=== PATIENT | male | born 1980 | race Caucasian/White ===

== ENCOUNTER 2016-08-09 15:14 | Emergency (ER) | payer OTHER ==
[~2016-08-09] VITALS: Ht 193 cm; Wt 81.6 kg
[~2016-08-09 15:14] MED LIST: AMBIEN10 M1 PO; LITHIUM CARBON600 M1 PO; OLANZAPINE5 M2 PO; PROPRANOLOL HCL20 M1 PO; QUETIAPINE FUM100 M1 PO; QUETIAPINE FUMA50 M1 PO; SEROQUEL100 M1 PO; SEROQUEL50 M1 PO; XANAX0.5 M1 PO
--- NOTE | 2016-08-09 15:45 | ED GENERAL ADULT ---
See Addendum History of Present Illness General Chief Complaint: Psychiatric Related Complaint Stated Complaint: SVERE ANXIETY/REQUEST TO SPEAK SOMEONE Source: patient Exam Limitations: physical impairment Vital Signs & Intake/Output Vital Signs & Intake/Output Vital Signs Date Time Temp Pulse Resp B/P Pulse O2 O2 Flow FiO2 Ox Delivery Rate 08/09 1854 Room Air 08/09 1819 96.7 59 18 133/90 99 Room Air 08/09 1521 96.4 66 18 158/90 99 Room Air ED Intake and Output 08/10 0000 08/09 1200 Intake Total 120 Output Total Balance 120 Intake, Oral 120 Patient 180 lb Weight Allergies Coded Allergies: NO KNOWN ALLERGIES (06/10/16) Triage Note: 36 Y/O MALE C/O "SEVERE ANXIETY" FOR APPROX 1 WEEK - STATES HE WAS ABLE TO MANAGE ANXIETY PRIOR TO THE LAST WEEK WHEN "ITS JUST GOTTEN SO BAD". GOES TO IOP BUT DOES NOT FEEL ITS HELPING. HAS BEEN TAKING ALL PRESCRIBED MEDS INSTRUCTED WITH NO RELIEF. DENIES SI/HI. CALM AND COOPERATIVE. C/O NOT BEING ABLE TO SLEEP OR EAT. Triage Nurses Notes Reviewed? yes Onset: Abrupt Duration: hour(s): Timing: recent history HPI: 08/09/16 5 PM 36-year-old male presents to the emergency department complaining of anxiety and depression. The patient has a history of bipolar disorder. He says he's having severe anxiety and his medications are not working. He admits to smoking marijuana but denies other drug use. The onset of the symptoms were abrupt, the duration is really unknown, the severity is significant as his symptoms required him to come to the emergency department for care. (DEANDRA JACOBSON DO) Reconcile Medications [place] Carbonate 600 MG CAPSULE 1 CAP PO BID MENTAL HEALTH (Reported) Lorazepam (Ativan) 1 MG TABLET 1 TAB PO DAILY PRN AXIETY DO NOT DRIVE ON THIS MEDIOCATION Olanzapine 5 MG TABLET 1 TAB PO QPM MENTAL HEALTH (Reported) Propranolol HCl 20 MG TABLET 1 TAB PO TID UNKNOWN (Reported) Quetiapine Fumarate 100 MG TABLET 1 TAB PO QPM SLEEP (Reported) Quetiapine Fumarate 50 MG TABLET 1 TAB PO QPM SLEEP HELP (Reported) Quetiapine Fumarate (Seroquel) 100 MG TABLET 1 TAB PO QPM BIPOLAR Quetiapine Fumarate (Seroquel) 50 MG TABLET 1 TAB PO QPM BIPOLA (ENRIQUETA SANTANA,BEBETO Hawthorne) Past History Travel History Traveled to [place] past 21 day No Medical History Any Pertinent Medical History? 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 No (DEANDRA JACOBSON DO) Review of Systems Review of Systems Constitutional: Denies: fever. EENTM: Reports: no symptoms. Respiratory: Reports: no symptoms. Cardiovascular: Reports: no symptoms. GI: Reports: no symptoms. Genitourinary: Reports: no symptoms. Musculoskeletal: Reports: no symptoms. Skin: Reports: no symptoms. Neurological/Psychological: Reports: depressed. Hematologic/Endocrine: Denies: bleeding. Immunologic/Allergic: Reports: no symptoms. (DEANDRA JACOBSON DO) Physical Exam Physical Exam General Appearance: alert, awake, anxious, moderate distress Head: atraumatic, normal appearance Eyes: Bilateral: normal appearance, PERRL, EOMI. Ears, Nose, Throat: normal pharynx, normal ENT inspection Neck: normal inspection, supple Respiratory: normal breath sounds, chest non-tender, no respiratory distress Cardiovascular: regular rate/rhythm Peripheral Pulses: 4+ radial (R), 4+ radial (L) Gastrointestinal: soft, non-tender Back: decreased range of motion Extremities: normal inspection, normal range of motion Neurologic/Psych: awake, alert, oriented x 3 Skin: intact, normal color, warm/dry Core Measures ACS in differential dx? No CVA/TIA Diagnosis: No Severe Sepsis Present: No Septic Shock Present: No (DEANDRA JACOBSON DO) Progress Differential Diagnoses I considered the following diagnoses in my evaluation of the patient: [ exacerbation of bipolar disorder, niall, drug overdose, substance abuse, depression, suicidal ideation] Plan of Care: Orders Procedure Date/time Status Continuous Observation Monitor 08/09 1616 Active URINE DRUG SCREEN FOR ER ONLY 08/09 1616 Complete ETHANOL 08/09 1616 Complete COMPREHENSIVE METABOLIC PANEL 08/09 1616 Complete CBC WITHOUT DIFFERENTIAL 08/09 1616 Complete ED CRISIS PSYCH CONSULT 02/03 1617 Active Laboratory Tests 08/09/16 1710: Urine Opiates Screen < 100.00, Methadone Screen < 40, Barbiturate Screen < 60, Ur Phencyclidine Scrn < 6.00, Amphetamines Screen < 100, U Benzodiazepines Scrn < 85, Urine Cocaine Screen < 50, Urine Cannabis Screen > 80.00 H 08/09/16 1625: Anion Gap 8, Estimated GFR > 60, BUN/Creatinine Ratio 19.0, Glucose 80, Calcium 9.6, Total Bilirubin 1.1, AST 23, ALT 42, Alkaline Phosphatase 73, Total Protein 7.4, Albumin 4.5, Globulin 2.9, Albumin/Globulin Ratio 1.6, CBC w Diff NO MAN DIFF REQ, RBC 5.07, MCV 88.1, MCH 29.6, RDW 13.1, MPV 9.3, Gran % 59.1, Lymphocytes % 28.5, Monocytes % 8.9, Eosinophils % 3.2, Basophils % 0.3, Absolute Granulocytes 6.2, Absolute Lymphocytes 3.0, Absolute Monocytes 0.9 H, Absolute Eosinophils 0.3, Absolute Basophils 0, PUBS MCHC 33.6, Serum Alcohol < 10.0 Initial ED EKG: none (DEANDRA JACOBSON DO) Departure Departure Disposition: STILL A PATIENT Condition: Stable Clinical Impression Primary Impression: Bipolar disorder Referrals: PATIENT HAS NO PRIMARY CARE DR (PCP/Family) Departure Forms: Customer Survey General Discharge Information Comments 08/09/16 The patient is pending evaluation by crisis. He was placed in a quiet room. Ativan was given and a nicotine patch. The patient was signed out to Dr. Auguste at 7 PM (DEANDRA JACOBSON DO) Departure Prescriptions: Current Visit Scripts Lorazepam (Ativan) 1 TAB PO DAILY PRN AXIETY #[address] DO [address] DRIVE ON THIS MEDIOCATION PA/DIE TURNER Co-Sign Statement Statement: ED Attending supervision documentation- [] I saw and evaluated the patient. I have also reviewed all the pertinent lab results and diagnostic results. I agree with the findings and the plan of care as documented in the PA's/DIE TURNER's documentation. X] I have reviewed the ED Record and agree with the PA's/DIE TURNER's documentation. [] Additions or exceptions (if any) to the PAs/DIE TURNER's note and plan are summarized below: [] (ENRIQUETA SANTANA,BEBETO Hawthorne) Critical Care Note Critical Care Note Critical Care Time: 30-74 min (DEANDRA JACOBSON DO)
[2016-08-09 16:37] LABS: ABSOLUTE BASOPHIL COUNT 0 /CUMM (0.0-0.2); ABSOLUTE EOSINOPHIL COUNT 0.3 /CUMM (0.0-0.7); ABSOLUTE GRANULOCYTE CT 6.2 /CUMM (1.4-6.5); ABSOLUTE MONOCYTE COUNT 0.9 /CUMM (0.10-0.60); BASOPHIL % 0.3 % (0.0-2.0); EOSINOPHIL % 3.2 % (0-5); GRANULOCYTE % 59.1 % (42.2-75.2); HEMATOCRIT 44.6 % (42-52); MEAN CORPUSCULAR HGB 29.6 PG (27.0-31.0); MEAN CORPUSCULAR HGB CONC 33.6 G/DL (33.0-37.0); MEAN CORPUSCULAR VOLUME 88.1 FL (80.0-94.0); MEAN PLATELET VOLUME 9.3 FL (7.4-10.4); PLATELET COUNT 224 /CUMM (130-400); RBC DISTRIBUTION WIDTH 13.1 % (11.5-14.5); RED BLOOD CELL CT 5.07 /CUMM (4.70-6.10); WHITE BLOOD CELL COUNT 10.5 /CUMM (4.8-10.8)
[2016-08-09 18:19] VITALS: BP 133/90
--- NOTE | 2016-08-09 18:43 | ED PSYCH CRISIS CONSULTATION ---
Crisis Consult Basic Assessment Date of Consult: 08/09/16 Responsible Person/Accompanied By: Self. Insurance Authorization: Insurance #1: Insurance name: CAROL VERDIN Phone number: Policy number: [id number] Group number: Authorization number: ED Provider: Patient's ED Provider: DEANDRA JACOBSON DO Primary Care Physician: Patient's PCP: PATIENT HAS NO PRIMARY CARE DR PCP's Phone Number: Current Psychiatrist: Angeline Dawson MD Chief Complaint: Psychiatric Related Complaint Patient's Quote: "bad anxiety" Present Illness: Pt is a 36 year old male, currently in our IOP at [facility], he has been attending for 6 weeks, pt states the medications he is taking are not decreasing his feelings of worry, panic and anxiety. He states outside of program, he is home and pacing, biting his fingernails and worrying about everything, "my Father has a rash on his arm, and I am fearful he will ", pt is aggravated, oriented, and denies si/hi. He reports he smokes marijuana, and it seems to be the "only thing to help my anxiety". Pt was addicted for psychosis and "bipolar d/o" 5 months ago at [facility], otherwise he has not been inpatient. Pt reports " I came to to the ER to get a prescription, and if that isnt going to happen, just give me my clothes". I referred pt to , and consulted with Dr. Allred, pt is expected to inform IOP of any additions and/or changes to regime that happened during this visit. Pt lives with his Father, and would returnt [facility]. Patient's Address: [address] [place] [address] Other Phone Number: Who Do You Live With? Father Family/Informants Interviewed: left message for Father, and spoke with IOP staff for an update, pt has been doing better in regards to being attentive and less isolative, he is engaged in program. Allergies - Coded Allergies: NO KNOWN ALLERGIES (06/10/16) Current Medications - Scheduled Medications [place] Carbonate 600 MG CAPSULE 1 CAP PO BID MENTAL HEALTH #60 (Reported) Entered as Reported by FIDE COLEMAN on 03/27/16 1342 Olanzapine 5 MG TABLET 1 TAB PO QPM MENTAL HEALTH #14 (Reported) Entered as Reported by FIDE COLEMAN on 06/10/16 1357 Propranolol HCl 20 MG TABLET 1 TAB PO TID UNKNOWN #60 (Reported) Entered as Reported by FIDE COLEMAN on 03/27/16 1342 Quetiapine Fumarate 100 MG TABLET 1 TAB PO QPM SLEEP #30 (Reported) Entered as Reported by FIDE COLEMAN on 03/27/16 1343 Quetiapine Fumarate 50 MG TABLET 1 TAB PO QPM SLEEP HELP #30 (Reported) Entered as Reported by FIDE COLEMAN on 03/27/16 1343 Quetiapine Fumarate (Seroquel) 100 MG TABLET 1 TAB PO QPM BIPOLAR #30 TAB Prescribed by BRITNEY MARTINEZ MD on 05/31/16 Quetiapine Fumarate (Seroquel) 50 MG TABLET 1 TAB PO QPM BIPOLA #30 TAB Prescribed by BRITNEY MARTINEZ MD on 05/31/16 Scheduled PRN Medications Lorazepam (Ativan) 1 MG TABLET 1 TAB PO DAILY PRN AXIETY #4 TAB Prescribed by DEANDRA JACOBSON DO on 08/09/16 Laboratory Results: Laboratory Tests 08/09/16 1710: Urine Opiates Screen < 100.00, Methadone Screen < 40, Barbiturate Screen < 60, Ur Phencyclidine Scrn < 6.00, Amphetamines Screen < 100, U Benzodiazepines Scrn < 85, Urine Cocaine Screen < 50, Urine Cannabis Screen > 80.00 H 08/09/16 1625: Anion Gap 8, Estimated GFR > 60, BUN/Creatinine Ratio 19.0, Glucose 80, Calcium 9.6, Total Bilirubin 1.1, AST 23, ALT 42, Alkaline Phosphatase 73, Total Protein 7.4, Albumin 4.5, Globulin 2.9, Albumin/Globulin Ratio 1.6, CBC w Diff NO MAN DIFF REQ, RBC 5.07, MCV 88.1, MCH 29.6, RDW 13.1, MPV 9.3, Gran % 59.1, Lymphocytes % 28.5, Monocytes % 8.9, Eosinophils % 3.2, Basophils % 0.3, Absolute Granulocytes 6.2, Absolute Lymphocytes 3.0, Absolute Monocytes 0.9 H, Absolute Eosinophils 0.3, Absolute Basophils 0, PUBS MCHC 33.6, Serum Alcohol < 10.0 Past History Past Medical History Neurological: NONE EENT: NONE Cardiovascular: NONE Respiratory: NONE Gastrointestinal: NONE Hepatic: NONE Renal: NONE Musculoskeletal: NONE Psychiatric: anxiety, bipolar disease Endocrine: NONE Blood Disorders: NONE Cancer(s): 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 Pt has a supportive family. Pt is connected to treatment at present. Physical Limitations (Interventions): None identified. Psychiatric Treatment History Psych Treatment Psychiatric Treatment Yes Inpatient Treatment Yes Outpatient Treatment Yes Location of Treatment [facility] Reason for Treatment 5 months ago inpatient Currently and for past 6 weeks [facility] Previously and can return to [facility] in [place] Dates of Treatment For mood stabilization Response to Treatment he doesnt feel it has been helping with anxiety Diagnosis by History: Per pt's self-report, bipolar d/o, and cannabis use d/o Substance Use/Abuse History Drug Use/Abuse Substances Used/Abused Yes Substance Used/Abused Marijuana First Use 20 Last Used today How much used/taken 1/8 every 2 days How often daily throughout the day For how long on and off since first use Route of use smoke Substance Abuse Treatment Substance Abuse Treatment Past Substance Abuse [place] No Comments: denies Current Mental Status Mental Status Orientation: Person, Place, Situation Affect: Anxious, Sad (irritable) Speech: WNL Neuro-vegetative: Appetite Decreased, Concentration Poor, Energy Decreased, Sleep Disturbance Appearance Appearance- Dress/Hygiene: groomed, appropriate hospital attire Behaviors Thought Process: WNL Thought Content: WNL Memory: WNL Insight: Fair SI/HI Risk Assessment Past Suicidal Ideation/Attempts No Current Suicidal Ideation/Att No Past Homicidal Ideation/Att: No Current Homicidal Ideation/Attempts No Degree of Intent: None Risk Factors: high anxiety/distress, substance abuse, isolate/no social support, male Lethality Ratin (mild) PTSD Checklist PTSD Done? patient declined ED Management Sitter: Yes Restraints: No DSM5/PS Stressors/Medical Prob Diagnosis' (DSM 5, Stressors, Medical): F31.9 Unspecified Bipolar D/O F12.20 Cannabis Use D/O Current GAF: 37 Departure Disposition Psych Medical Clearance Date: 08/09/16 Medically Cleared at: 1730 Time Started: 1729 Time Ended: 1829 Psychiatrist Consulted: nicole Date Disposition Established: 08/09/16 Time Disposition Established: 183 Plan for Disposition - Modality: IOP Facility: [facility] Follow-up Appt Date: 08/13/16 Contact: [facility] Telephone: [phone] Rationale for Disposition: Consulted with Dr Allred, pt to follow up with IOP provider, if pt was given a new presciption, it is recommended to inform provider and to confirm it is allowed in their program i.e. benzo. Pt states he wasnt sure. Pt was medciated in the ER with 2mg of ativan. Pt discharged home. Additional Instructions: To follow up with IOP provider Referrals PATIENT HAS NO PRIMARY CARE DR (PCP/Family)
[2016-08-09] MEDS ORDERED: ATIVAN1 M1 PO (18:53)
== END 2016-08-09 19:09 ==
LOC: ERH 15:14
PROVIDERS: Emergency Medicine
DX: F31.9 Bipolar disorder, unspecified (principal)
CPT/HCPCS: 80307; G0463; G0480

== ENCOUNTER 2016-10-29 11:45 | Emergency (ER) | payer OTHER ==
[~2016-10-29] VITALS: Ht 193 cm; Wt 81.6 kg
[~2016-10-29 11:45] MED LIST changes: +ATIVAN1 M1 PO
[2016-10-29] MEDS ORDERED: HYDROXYZINE HCL50 M1 PO (12:29)
[2016-10-29] MEDS ORDERED: GABAPENTIN300 M2 PO (12:30)
[2016-10-29] MEDS ORDERED: TRAZODONE HCL50 M1 PO (12:30)
[2016-10-29] MEDS ORDERED: VRAYLAR3 MG PO (12:30)
--- NOTE | 2016-10-29 12:58 | ED PSYCHIATRIC COMPLAINT ---
History of Present Illness General Chief Complaint: Psychiatric Related Complaint Stated Complaint: NEEDS EVAL FOR DEPRESSION HX OF SAME Source: patient, MOTHER Exam Limitations: no limitations Vital Signs & Intake/Output Vital Signs & Intake/Output Vital Signs Date Time Temp Pulse Resp B/P B/P Pulse O2 O2 Flow FiO2 Mean Ox Delivery Rate 10/29 1714 98.5 79 16 133/100 96 Room Air 10/29 1446 97.0 70 18 128/88 98 Room Air 10/29 1314 Room Air 10/29 1248 98.2 68 18 132/97 98 Room Air 10/29 1151 97.6 74 20 128/85 98 Room Air Allergies Uncoded Allergies: "ANTI PSYCHOTIC DRUGS" (UNKNOWN 10/29/16) Reconcile Medications Cariprazine HCl (Vraylar) 3 MG CAPSULE 1 CAP PO DAILY MENTAL HEALTH (Reported ) Gabapentin 300 MG CAPSULE 1 CAP PO TID MENTAL HEALTH (Reported) Hydroxyzine HCl 50 MG TABLET 2 TAB PO QPM SLEEP (Reported) [place] Carbonate 600 MG CAPSULE 1 CAP PO BID MENTAL HEALTH (Reported) Olanzapine 5 MG TABLET 1 TAB PO QPM MENTAL HEALTH (Reported) Propranolol HCl 20 MG TABLET 1 TAB PO TID UNKNOWN (Reported) Quetiapine Fumarate 100 MG TABLET 1 TAB PO QPM SLEEP (Reported) Quetiapine Fumarate 50 MG TABLET 1 TAB PO QPM SLEEP HELP (Reported) Trazodone HCl 50 MG TABLET 2 TAB PO QPM SLEEP (Reported) Triage Note: PT TO ED WITH MOTHER C/O INCREASING DEPRESSION. STATES HAS H/O AND DOES NOT TAKE MEDS FOR IT. PT GOES TO [facility]. DENIES SI/HI. ADMITS TO MARIJUANA USE, DENIES ANY OTHER DRUGS OR ETOH. MOTHER STATES PT HAS HAD POOR PO INTAKE AND POOR HYGIENE. PT STATES "I NEED HELP WITH MY DEPRESSION". Triage Nurses Notes Reviewed? yes HPI: Patient presents for evaluation of worsening depression over the past few years. Patient states he last took antidepressant medications about 2 years ago. Although he is currently taking a number of mood stabilizing medications don't seem to be helping. He denies suicide or homicide ideation. His POA intake has been poor along with his hygiene. Today he felt he needed help with his depression symptoms. In terms are described as severe constant but fluctuating in intensity. He denies any recent life stressors that may have intensified his state of depression. Past History Travel History Traveled to [place] past 21 day No Medical History Any Pertinent Medical History? 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 No Review of Systems Review of Systems Constitutional: Reports: no symptoms. EENTM: Reports: no symptoms. Respiratory: Reports: no symptoms. Cardiovascular: Reports: no symptoms. GI: Reports: no symptoms. Genitourinary: Reports: no symptoms. Musculoskeletal: Reports: no symptoms. Skin: Reports: no symptoms. Neurological/Psychological: Reports: see HPI. Hematologic/Endocrine: Reports: no symptoms. Immunologic/Allergic: Reports: no symptoms. All Other Systems: Reviewed and Negative Physical Exam Physical Exam General Appearance: SEE BELOW Neurological/Psychiatric: SEE BELOW Comments: General: Alert, calm, cooperative Head: Normocephalic, atraumatic Eyes: Normal inspection, no nystagmus, EOMI Ears: Normal inspection Nose: Normal inspection Throat: Moist mucosa Neck: Supple, no goiter Heart: Regular rate and rhythm, no murmurs rubs or gallops Lungs: Clear to auscultation bilaterally with good air entry Abdomen: Soft nontender nondistended, normal bowel sounds Chest: Nontender Extremities: Normal range of motion grossly, no tremors present, no cyanosis clubbing or edema of the upper extremities, no cogwheeling Neurologic: cranial nerves II through XII grossly intact, speech clear, gait normal Psychiatric: No apparent delusions or hallucinations, no pressured speech or thought blocking, depressed affect SAD PERSONS Done? deferred to crisis Progress Differential Diagnosis: DEPRESSION, BIPOLAR DISORDER Plan of Care: Orders Procedure Date/time Status URINE DRUG SCREEN FOR ER ONLY 10/29 1257 Complete ETHANOL 10/29 1257 Complete CBC WITHOUT DIFFERENTIAL 10/29 1257 Complete BASIC METABOLIC PANEL 10/29 1257 Complete ED CRISIS PSYCH CONSULT 10/29 1257 Active Laboratory Tests 10/29/16 1305: Anion Gap 12, Estimated GFR > 60, BUN/Creatinine Ratio 11.1, Glucose 94, Calcium 9.6, CBC w Diff MAN DIFF ORDERED, RBC 5.07, MCV 89.0, MCH 29.2, RDW 13.4, MPV 10.4, Gran % 78.4 H, Lymphocytes % 16.5 L, Monocytes % 3.0, Eosinophils % 1.9, Basophils % 0.2, Absolute Granulocytes 12.7 H, Absolute Lymphocytes 2.7, Absolute Monocytes 0.5, Absolute Eosinophils 0.3, Absolute Basophils 0, Platelet Estimate ADEQUATE, Normocytic RBCs VERIFIED, Normochromic RBCs VERIFIED, PUBS MCHC 32.9 L, Serum Alcohol < 10.0 10/29/16 1302: Urine Opiates Screen < 100.00, Methadone Screen < 40, Barbiturate Screen < 60, Ur Phencyclidine Scrn < 6.00, Amphetamines Screen < 100, U Benzodiazepines Scrn < 85, Urine Cocaine Screen < 50, Urine Cannabis Screen > 80.00 H Comments: 10/29/2016 3:10:25 PM according to patient's nurse, he seems to be escalating despite the dose of Ativan. I have ordered Zyprexa. Awaiting crisis evaluation. 10/29/2016 5:18:09 PM patient has been evaluated by crisis. They feel he is stable for outpatient management via his psychiatrist and counselor at the [facility]. He will be provided an antidepressant prescription via [facility]. Departure Departure Disposition: HOME OR SELF CARE Condition: Stable Clinical Impression Primary Impression: Depression Qualifiers: Depression Type: major depressive disorder Major depression recurrence: recurrent Active/Remission status: currently active Major depression episode severity: moderate Qualified Code: F33.1 - Major depressive disorder, recurrent, moderate Referrals: YVETTE MORE APRN (PCP/Family) Additional Instructions: Follow-up with your counselor and psychiatrist at the [facility] as soon as possible. Notify your primary care doctor of this emergency department visit and treatment plan. Return if any concerns or sudden worsening. Departure Forms: Customer Survey General Discharge Information
[2016-10-29 13:25] LABS: ABSOLUTE BASOPHIL COUNT 0 /CUMM (0.0-0.2); ABSOLUTE EOSINOPHIL COUNT 0.3 /CUMM (0.0-0.7); ABSOLUTE GRANULOCYTE CT 12.7 /CUMM (1.4-6.5); ABSOLUTE LYMPH COUNT 2.7 /CUMM (1.2-3.4); ABSOLUTE MONOCYTE COUNT 0.5 /CUMM (0.10-0.60); BASOPHIL % 0.2 % (0.0-2.0); EOSINOPHIL % 1.9 % (0-5); GRANULOCYTE % 78.4 % (42.2-75.2); HEMATOCRIT 45.1 % (42-52); MEAN CORPUSCULAR HGB 29.2 PG (27.0-31.0); MEAN CORPUSCULAR HGB CONC 32.9 G/DL (33.0-37.0); MEAN PLATELET VOLUME 10.4 FL (7.4-10.4); PLATELET COUNT 241 /CUMM (130-400); RBC DISTRIBUTION WIDTH 13.4 % (11.5-14.5); RED BLOOD CELL CT 5.07 /CUMM (4.70-6.10); WHITE BLOOD CELL COUNT 16.3 /CUMM (4.8-10.8)
[2016-10-29 17:14] VITALS: BP 133/100
--- NOTE | 2016-10-29 17:38 | ED PSYCH CRISIS CONSULTATION ---
Crisis Consult Basic Assessment Date of Consult: 10/29/16 Responsible Person/Accompanied By: self/mother Insurance Authorization: Insurance #1: Insurance name: CAROL VERDIN Phone number: Policy number: [id number] Group number: Authorization number: ED Provider: Patient's ED Provider: EDANDRA DANIELS MD Primary Care Physician: Patient's PCP: YVETTE MORE APRN PCP's Current Psychiatrist: Jeanette Dickinson [facility] Chief Complaint: Psychiatric Related Complaint Patient's Quote: Not good-I don't know whats going on Present Illness: Pt is a 36 yo male presenting to [place] ED this afternoon with complaint of worsening depression and anxiety. Pt is accompanied by his mother. Pt reports a diagnosis of bipolar d/o and has a hx of etoh and cannabis abuse. Pt was inpatient 2x last summer at [facility] following "major manic episode" and had been successfully treated at [facility] until he was discharged Aug 2016 due to relapse and inability to abstain from etoh and cannabis. Pt current urine screen is positive for cannabis. Pt is currently treated by Jeanette Dickinson at [facility]. Due to a hx of medication non-compliance reportedly provider will only prescribe a new anti-depressant contigent on pt accepting in-home nursing services to administer medications. Pt is currently refusing visiting nurses. Pt denies si/hi. no presence of psychosis. Pt is somewhat flat and irritable but engaged and cooperative. pt is [employer]. 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 Pt would like opportunity to return to [facility]. Patient's Address: [address] [place] [address] Other Phone Number: Who Do You Live With? Father Family/Informants Interviewed: Collateral provided by mother Marlene - [phone]. she reports pt appears more depressed and he reports medication isn't helping. She reports he has crying episodes but then tells her he is ok. She expressed concern that he is smoked a lot of marijuana and she is concerned that may be effecting his medications effectiveness. She reports no awareness of SI/ HI. Allergies - Uncoded Allergies: "ANTI PSYCHOTIC DRUGS" (UNKNOWN 10/29/16) Current Medications - Scheduled Medications Cariprazine HCl (Vraylar) 3 MG CAPSULE 1 CAP PO DAILY MENTAL HEALTH #30 ( Reported) Entered as Reported by FIDE COLEMAN on 10/29/16 1230 Gabapentin 300 MG CAPSULE 1 CAP PO TID MENTAL HEALTH #69 (Reported) Entered as Reported by FIDE COLEMAN on 10/29/16 1230 Hydroxyzine HCl 50 MG TABLET 2 TAB PO QPM SLEEP #46 (Reported) Entered as Reported by FIDE COLEMAN on 10/29/[address] [place] Carbonate 600 MG CAPSULE 1 CAP PO BID MENTAL HEALTH #60 (Reported) Entered as Reported by FIDE COLEMAN on 03/27/16 1342 Olanzapine 5 MG TABLET 1 TAB PO QPM MENTAL HEALTH #14 (Reported) Entered as Reported by FIDE COLEMAN on 06/10/16 1357 Propranolol HCl 20 MG TABLET 1 TAB PO TID UNKNOWN #60 (Reported) Entered as Reported by FIDE COLEMAN on 03/27/16 1342 Quetiapine Fumarate 100 MG TABLET 1 TAB PO QPM SLEEP #30 (Reported) Entered as Reported by FIDE COLEMAN on 03/27/16 1343 Quetiapine Fumarate 50 MG TABLET 1 TAB PO QPM SLEEP HELP #30 (Reported) Entered as Reported by FIDE COLEMAN on 03/27/16 1343 Trazodone HCl 50 MG TABLET 2 TAB PO QPM SLEEP #23 (Reported) Entered as Reported by FIDE COLEMAN on 10/29/16 1230 Laboratory Results: Laboratory Tests 10/29/16 1305: Anion Gap 12, Estimated GFR > 60, BUN/Creatinine Ratio 11.1, Glucose 94, Calcium 9.6, CBC w Diff MAN DIFF ORDERED, RBC 5.07, MCV 89.0, MCH 29.2, RDW 13.4, MPV 10.4, Gran % 78.4 H, Lymphocytes % 16.5 L, Monocytes % 3.0, Eosinophils % 1.9, Basophils % 0.2, Absolute Granulocytes 12.7 H, Absolute Lymphocytes 2.7, Absolute Monocytes 0.5, Absolute Eosinophils 0.3, Absolute Basophils 0, Platelet Estimate ADEQUATE, Normocytic RBCs VERIFIED, Normochromic RBCs VERIFIED, PUBS MCHC 32.9 L, Serum Alcohol < 10.0 10/29/16 1302: Urine Opiates Screen < 100.00, Methadone Screen < 40, Barbiturate Screen < 60, Ur Phencyclidine Scrn < 6.00, Amphetamines Screen < 100, U Benzodiazepines Scrn < 85, Urine Cocaine Screen < 50, Urine Cannabis Screen > 80.00 H Past History Past Medical History Neurological: NONE EENT: NONE Cardiovascular: NONE Respiratory: NONE Gastrointestinal: NONE Hepatic: NONE Renal: NONE Musculoskeletal: NONE Psychiatric: anxiety, bipolar disease, depression Endocrine: NONE Blood Disorders: NONE Cancer(s): 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 Pt has a supportive family. Pt is connected to treatment at present. Physical Limitations (Interventions): None identified. Psychiatric Treatment History Psych Treatment Psychiatric Treatment Yes Inpatient Treatment Yes Outpatient Treatment Yes Location of Treatment Inpatient [facility] 2015 X2; Outpatient [facility] - current Reason for Treatment depression/anxiety Response to Treatment struggles with continues cannabis and occasional etoh use. not consistent with his medications. Diagnosis by History: Per pt's self-report, bipolar d/o, and cannabis use d/o Substance Use/Abuse History Drug Use/Abuse Substances Used/Abused Yes Substance Used/Abused Marijuana Last Used today How often daily For how long past few months Substance Abuse Treatment Substance Abuse Treatment Past Substance Abuse [place] Yes Inpatient Treatment No Outpatient Treatment Yes Location of Treatment [facility] Reason for Treatment etoh and Cannabis use d/o Response to Treatment sporadic relapses Current Mental Status Mental Status Orientation: Person, Place, Situation Affect: Depressed, Flat Speech: WNL Neuro-vegetative: Anhedonia, Appetite Decreased, Energy Decreased, Sleep Disturbance Appearance Appearance- Dress/Hygiene: hospital scrubs, wrapped in a blanket with back against the wall. Full [place]; bald head; . Behaviors Thought Process: WNL Thought Content: WNL Memory: WNL Insight: Fair SI/HI Risk Assessment Past Suicidal Ideation/Attempts Yes Current Suicidal Ideation/Att No Past Homicidal Ideation/Att: No Current Homicidal Ideation/Attempts No Degree of Intent: None Gravely Disabled: Poor Judgment Risk Factors: high anxiety/distress, history of suicide atmpts, SA/MH hospitalized, substance abuse, poor impulse control, male Lethality Ratin PTSD Checklist PTSD Done? patient declined ED Management Sitter: Yes Restraints: No DSM5/PS Stressors/Medical Prob Diagnosis' (DSM 5, Stressors, Medical): Bipolar d/o depressed (F31.31) Cannabis Use severe (F12.20) conflict with provider sleep difficulties Current GAF: 40 Comments: Pt reports struggling with depression and increased anxiety since major manic episode last summer. He reportedly was doing well attending [facility] but ended up discharging to relapse of cannabis and etoh. reports increased depression past 2 months and frustrated with [facility] Provider because she won't prescribe him an antidepressant unless he is willing to accept in-home nursing to administer his medications due to a hx of medication inconsistencies. Departure Disposition Psych Medical Clearance Date: 10/29/16 Medically Cleared at: 1600 Time Started: 1605 Time Ended: 1645 Psychiatrist Consulted: Nicolasa Mcclellan MD Date Disposition Established: 10/29/16 Time Disposition Established: 1700 Plan for Disposition - Modality: Outpatient ([facility]) Rationale for Disposition: Pt advised to allow [facility] provider to order a visiting nurse to administer his medications until he can demonstrate medication compliance. Pt expressed frustrastion that he may no longer want to work with that provider if she doesn't trust him to take his medications on his own. Pt reported interest in return to [facility]. Crisis reviewed that he was recently discharged due to ongoing cannabis use which continues. Pt reported he would prefer to receive tx at [facility] and he is motivated to stop cannabis use. Crisis provided pt with [facility] contact information so he can call to discuss the possibility of receiving tx at [facility]. Referrals YVETTE MORE APRN (PCP/Family)
== END 2016-10-29 17:59 ==
LOC: ERH 11:45
PROVIDERS: Emergency Medicine
DX: F32.9 Major depressive disorder, single episode, unspecified (principal); F12.10 Cannabis abuse, uncomplicated
CPT/HCPCS: 80307; G0463; G0480

== ENCOUNTER 2017-10-11 20:40 | Inpatient (IN) | payer OTHER ==
[~2017-10-11] VITALS: Ht 193 cm; Wt 95.3 kg
[~2017-10-11 20:40] MED LIST changes: +GABAPENTIN300 M2 PO; +HYDROXYZINE HCL50 M1 PO; +MIRTAZAPINE30 M2 PO; +TRAZODONE HCL50 M1 PO; +VRAYLAR3 MG PO
--- NOTE | 2017-10-11 20:58 | ED PSYCHIATRIC COMPLAINT ---
See Addendum History of Present Illness General Chief Complaint: Psychiatric Related Complaint Stated Complaint: PSYCH EVAL Source: patient, old records, EMS Exam Limitations: no limitations Vital Signs & Intake/Output Vital Signs & Intake/Output Vital Signs Date Time Temp Pulse Resp B/P B/P Pulse O2 O2 Flow FiO2 Mean Ox Delivery Rate 10/12 2042 98.3 78 16 141/88 95 Room Air 10/12 1638 87 18 127/73 99 Room Air 10/12 1045 98 137/69 10/12 1043 97.7 98 15 137/69 100 Room Air Room Air 10/12 0932 97.0 87 16 119/76 97 Room Air 10/12 0641 98.2 97 20 126/74 98 Room Air / 0639 98.2 97 20 126/74 /08 0112 98.6 98 18 117/79 04/08 0111 98 18 117/79 96 Room Air ED Intake and Output 10/12 0000 10/11 1200 Intake Total Output Total Balance Patient 210 lb Weight Weight Estimated Measurement Method Allergies Uncoded Allergies: "ANTI PSYCHOTIC DRUGS" (UNKNOWN 10/29/16) Reconcile Medications Cariprazine HCl (Vraylar) 3 MG CAPSULE 1 CAP PO DAILY MENTAL HEALTH (Reported ) Citalopram Hydrobromide (Celexa) 40 MG TABLET 1 TAB PO DAILY MENTAL HEALTH ( Reported) Gabapentin 300 MG CAPSULE 1 CAP PO TID MENTAL HEALTH (Reported) Hydroxyzine Hydrochloride (Atarax) 50 MG TABLET 2 TAB PO QPM SLEEP (Reported) [place] Carbonate 600 MG CAPSULE 1 CAP PO BID MENTAL HEALTH (Reported) Lurasidone HCl (Latuda) 40 MG TABLET 1 TAB PO QPM MENTAL HEALTH (Reported) Mirtazapine 30 MG TABLET 1 TAB PO QPM SLEEP HELP (Reported) Olanzapine 5 MG TABLET 1 TAB PO QPM MENTAL HEALTH (Reported) Propranolol HCl 20 MG TABLET 1 TAB PO TID UNKNOWN (Reported) Propranolol HCl 10 MG TABLET 1 TAB PO BID HTN (Reported) Quetiapine Fumarate 100 MG TABLET 1 TAB PO QPM SLEEP (Reported) Quetiapine Fumarate 50 MG TABLET 1 TAB PO QPM SLEEP HELP (Reported) Trazodone HCl 50 MG TABLET 2 TAB PO QPM SLEEP (Reported) Triage Nurses Notes Reviewed? yes Onset: Last week Duration: day(s):, constant, continues in ED Timing: recent history Severity: moderate, severe Associated Symptoms: impaired concentration, suicidal ideation HPI: One week prior to admission patient reports increased depression with thoughts of suicide and alcohol abuse. 5 days prior to admission he reports taking overdose of gabapentin to kill himself. He denies fever chills nausea vomiting diarrhea abdominal pain chest pain shortness breath headache dysuria rash bleeding homicidal ideation hallucination. (Shaggy Naranjo MD) Past History Travel History Traveled to [place] past 21 day No Medical History Any Pertinent Medical History? 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 No (Shaggy Naranjo MD) Review of Systems Review of Systems Constitutional: Reports: no symptoms. EENTM: Reports: no symptoms. Respiratory: Reports: no symptoms. Cardiovascular: Reports: no symptoms. GI: Reports: no symptoms. Genitourinary: Reports: no symptoms. Musculoskeletal: Reports: no symptoms. Skin: Reports: no symptoms. Neurological/Psychological: Reports: see HPI, depressed. Hematologic/Endocrine: Reports: no symptoms. Immunologic/Allergic: Reports: no symptoms. All Other Systems: Reviewed and Negative (Shaggy Naranjo MD) Physical Exam Physical Exam General Appearance: well developed/nourished, alert, awake, anxious, moderate distress, intoxicated Head: atraumatic, normal appearance Eyes: Bilateral: normal appearance, PERRL, EOMI. 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 yes 1 Depression/Hopelessness? yes 2 Previous Attempts/Psych Care yes 1 Excessive Ethanol/Drug Use? yes 1 Rational Thinking Loss? yes 2 Single//? yes 1 Social Support? has no support 1 Stated Future Intent? yes 2 Total 11 SAD PERSONS Done? yes (Shaggy Naranjo MD) Progress Differential Diagnosis: drug intoxication, drug overdose, drug withdrawal, electrolyte abnormality, hypoglycemia Plan of Care: Orders Procedure Date/time Status Restraint- Discontinue 10/12 48 Active Restraint- Behavioral (Order) 10/12 2303 Active ED CRISIS PSYCH CONSULT 10/11 2154 Active Current Medications Sig/Robert Start time Last Medication Dose Stop Time Status Admin Lorazepam 2 MG FOUR TIMES A DAY PRN 10/12 213 UNVr (Ativan) Citalopram 40 MG DAILY 10/12 1000 UNVr 10/12 Hydrobromide 1045 (Celexa) Nicotine 21 MG DAILY 10/12 1000 UNVr 10/12 (Nicoderm) 1045 Nicotine 21 MG ONCE ONE 10/12 0945 CAN (Nicoderm) 10/12 0946 Lurasidone HCl 40 MG DAILY 10/12 0030 AC 10/12 (Latuda) 1045 Olanzapine 10 MG ONCE ONE 10/11 2299 CAN (ZyPREXA) 10/11 230 Gabapentin 300 MG TID 10/11 2232 UNVr 10/12 (Neurontin) 1045 Propranolol HCl 10 MG BID 10/11 2232 UNVr 10/12 (Inderal 10 MG 1045 Tablet.) Hand-Off Endorsed To: Anthony Copeland MD Endorsed Time: 699 Pending: consult (crisis) Comments: The patient became agitated unable to be redirected and hostile requiring physical and chemical restraint for patient and staff safetly (Shaggy Naranjo MD) Hand-Off Endorsed To: Ludwin Auguste MD Endorsed Time: 1899 Pending: consult (BED SEARCH) Comments: A PEC has been signed and a bed search is underway. (Anthony Copeland MD) Departure Departure Disposition: STILL A PATIENT Condition: Stable Clinical Impression Primary Impression: Depression with suicidal ideation Secondary Impressions: Alcohol intoxication delirium Referrals: Diandra Fonseca APRN (PCP/Family) Departure Forms: Customer Survey General Discharge Information (Shaggy Naranjo MD) PA/STERILIZATION TECH Co-Sign Statement Statement: ED Attending supervision documentation- [] I saw and evaluated the patient. I have also reviewed all the pertinent lab results and diagnostic results. I agree with the findings and the plan of care as documented in the PA's/STERILIZATION TECH's documentation. [x] I have reviewed the ED Record and agree with the PA's/STERILIZATION TECH's documentation. [] Additions or exceptions (if any) to the PAs/STERILIZATION TECH's note and plan are summarized below: [] (Kalyani SANTANA,Ludwin Hawthorne) Endorsed To: Ludwin Auguste MD Endorsed Time: 1899 Pending: consult (BED SEARCH) Comments: A PEC has been signed and a bed search is underway. (Min SANTANA,Anthony Tripathi) Departure Departure Disposition: STILL A PATIENT Condition: Stable Clinical Impression Primary Impression: Depression with suicidal ideation Secondary Impressions: Alcohol intoxication delirium Referrals: Diandra Fonseca APRN (PCP/Family) Departure Forms: Customer Survey General Discharge Information (Shaggy Naranjo MD)
[2017-10-11 21:20] LABS: ABSOLUTE BASOPHIL COUNT 0.1 /CUMM (0.0-0.2); ABSOLUTE EOSINOPHIL COUNT 0.7 /CUMM (0.0-0.7); ABSOLUTE GRANULOCYTE CT 8.8 /CUMM (1.4-6.5); ABSOLUTE LYMPH COUNT 4.9 /CUMM (1.2-3.4); ABSOLUTE MONOCYTE COUNT 0.6 /CUMM (0.10-0.60); BASOPHIL % 0.4 % (0.0-2.0); EOSINOPHIL % 4.8 % (0-5); GRANULOCYTE % 58.4 % (42.2-75.2); HEMATOCRIT 47.7 % (42-52); MEAN CORPUSCULAR HGB 29.6 PG (27.0-31.0); MEAN CORPUSCULAR HGB CONC 33.2 G/DL (33.0-37.0); MEAN CORPUSCULAR VOLUME 89.2 FL (80.0-94.0); MEAN PLATELET VOLUME 9.8 FL (7.4-10.4); PLATELET COUNT 255 /CUMM (130-400); RBC DISTRIBUTION WIDTH 13.4 % (11.5-14.5); RED BLOOD CELL CT 5.34 /CUMM (4.70-6.10); WHITE BLOOD CELL COUNT 15.1 /CUMM (4.8-10.8)
[2017-10-11 21:30] VITALS: BP 145/92
[2017-10-11 21:51] LABS: LITHIUM < 0.2 mmol/L (0.6-1.2)
[2017-10-11] MEDS ORDERED: PROPRANOLOL HCL10 M1 PO (22:26)
[2017-10-11] MEDS ORDERED: CELEXA40 M1 PO (22:27)
[2017-10-11] MEDS ORDERED: LATUDA40 M1 PO (22:27)
[2017-10-12 06:39] VITALS: BP 126/74
--- NOTE | 2017-10-12 08:25 | ED PSY CRISIS COLLATERAL NOTE ---
Collateral Note Collateral Note Family/Inform/Curtis Contacts: Telephone call with father Max Patrick [phone] Father reported he was concerned about son and feared that he might harm himself. He said his son had not been working all winter and he has no motivation to do anything around the house. Father has encouraged him to engage in hobbies or even housework and pt. has refused, just "sitting around" the house all day everyday. Father reported pt. received his tax refund about a month ago and he "smoke $1000 of pot in 3 weeks" and when he ran out of marijuana he switched to alcohol. He reported pt. was inpatient in June 2017 but he could not recall the hospital and said that "[facility] sent him there". Father reports son receives outpatient treatment at [facility] and sees a psychiatrist 1x a month for medication managment.
--- NOTE | 2017-10-12 08:58 | ED PSYCH CRISIS CONSULTATION ---
See Addendum Crisis Consult Basic Assessment Date of Consult: 10/12/17 Responsible Person/Accompanied By: self Insurance Authorization: Insurance #1: Insurance name: CAROL VERDIN Phone number: Policy number: [id number] Group number: Authorization number: ED Provider: Patient's ED Provider: Shaggy Naranjo MD Primary Care Physician: Patient's PCP: Diandra Fonseca APRN PCP's Current Psychiatrist: TAYLOR Johnson Chief Complaint: Psychiatric Related Complaint Patient's Quote: "They lied to me, they said I'd be here for a couple hours" Present Illness: Pt. was a 37 year old male BIBA after making a call to a Bipolar Crisis Hotline where the person on the phone advised him to get checked out by the ambulance. Pt. stated he believed that the ambulance would come and talk to him to check him out and then leave, they brought him to the emergency room, he believed "to get checked out for a couple hours". When he got here he says that he asked staff if he could be discharged in 2 hours but staff told him the ambulance had "lied" to him and that he would be here for quite a while. Pt. reported he was "pissed off" about being "lied to" by staff and the ambulance etc. and that he wanted to go home. At the same time, he reported he had been having worsening depression for 1 week, had attempted suicide by taking an overdose of gabapentin 5 days ago (he says he "doesn't remember" how many pills he took) but he woke up the next morning "a little groggy". He reported last night when calling the bipolar hotline, he had had racing thoughts where "all he could think about was how bad he felt and suicide". He denied current SI or racing thoughts, reported he was starting work on Friday, tomorrow, and wanted to go home. He described that he had been in the [facility] IOP and had gone everyday up until about 3 weeks ago when it ended. He reported he had began binge drinking, had gone to "a couple" 1x a week appointments at [facility] but then became so depressed and invovled in drinking that he stopped going. He reported he had a history of bipolar disorder diagnosis and he was taking gabapentin, latuda and celexa. His hygiene was lacking, although his hair appeared well groomed a cut, he emitted a strong body odor and his feet were visibly worn and dirty. When questioned about this he said that he was barefoot alot at home. Pt. reported a trauma history. He reported that when he was in high school he came home from school and found that his father had attempted to commit suicide (but had failed). He did not give details but stated the thought of it bothered him and that he is often pre-occupied with thoughts of and has been since that incident. He denied dreams or flashbacks or avoiding situations that reminded him of it, but stated he was pre-occupied with . Patient's Address: [address] [place] [address] Other Phone Number: Who Do You Live With? Father Family/Informants Interviewed: Spoke with father on the phone. See Collateral note. Father confirmed that pt. was to start work at [email or web address] on Friday, tomorrow. He reported pt. had worked at [employer] last year but that pt. had had conflict with another person who worked there and for that reason was starting a new job at [email or web address]. Allergies - Uncoded Allergies: "ANTI PSYCHOTIC DRUGS" (UNKNOWN 10/29/16) Current Medications - Scheduled Medications Cariprazine HCl (Vraylar) 3 MG CAPSULE 1 CAP PO DAILY MENTAL HEALTH #30 ( Reported) Entered as Reported by Mich Cordoba on 10/29/16 1230 Citalopram Hydrobromide (Celexa) 40 MG TABLET 1 TAB PO DAILY MENTAL HEALTH 0 Days (Reported) Entered as Reported by Svitlana Flores on 10/11/17 2227 Gabapentin 300 MG CAPSULE 1 CAP PO TID MENTAL HEALTH #69 (Reported) Entered as Reported by Mich Cordoba on 10/29/16 1230 Hydroxyzine Hydrochloride (Atarax) 50 MG TABLET 2 TAB PO QPM SLEEP #46 ( Reported) Entered as Reported by Mich Cordoba on 10/29/16 1229 [place] Carbonate 600 MG CAPSULE 1 CAP PO BID MENTAL HEALTH #60 (Reported) Entered as Reported by Mich Cordoba on 03/27/16 1342 Lurasidone HCl (Latuda) 40 MG TABLET 1 TAB PO QPM MENTAL HEALTH 0 Days ( Reported) Entered as Reported by Svitlana Flores on 10/11/17 2227 Mirtazapine 30 MG TABLET 1 TAB PO QPM SLEEP HELP #15 (Reported) Entered as Reported by Zaynab Regan on 06/05/17 2310 Olanzapine 5 MG TABLET 1 TAB PO QPM MENTAL HEALTH #14 (Reported) Entered as Reported by Mich Cordoba on 06/10/16 1357 Propranolol HCl 20 MG TABLET 1 TAB PO TID UNKNOWN #60 (Reported) Entered as Reported by Mich Cordoba on 03/27/16 1342 Propranolol HCl 10 MG TABLET 1 TAB PO BID HTN 0 Days (Reported) Entered as Reported by Svitlana Flores on 10/11/17 2226 Quetiapine Fumarate 100 MG TABLET 1 TAB PO QPM SLEEP #30 (Reported) Entered as Reported by Mich Cordoba on 03/27/16 1343 Quetiapine Fumarate 50 MG TABLET 1 TAB PO QPM SLEEP HELP #30 (Reported) Entered as Reported by Mich Cordoba on 03/27/16 1343 Trazodone HCl 50 MG TABLET 2 TAB PO QPM SLEEP #23 (Reported) Entered as Reported by Mich Cordoba on 10/29/16 1230 Laboratory Results: Laboratory Tests 10/11/170: Anion Gap 18 H, Estimated GFR > 60, BUN/Creatinine Ratio 17.8, Glucose 97, Calcium 9.2, Total Bilirubin 0.5, AST 24, ALT 48, Alkaline Phosphatase 99, Total Protein 7.8, Albumin 4.4, Globulin 3.4, Albumin/Globulin Ratio 1.3, CBC w Diff NO MAN DIFF REQ, RBC 5.34, MCV 89.2, MCH 29.6, MCHC 33.2, RDW 13.4, MPV 9.8, Gran % 58.4, Lymphocytes % 32.5, Monocytes % 3.9, Eosinophils % 4.8, Basophils % 0.4, Absolute Granulocytes 8.8 H, Absolute Lymphocytes 4.9 H, Absolute Monocytes 0.6, Absolute Eosinophils 0.7, Absolute Basophils 0.1, Salicylates < 1.0, Acetaminophen < 10.0 L, [place] < 0.2 L, Serum Alcohol 264.0 10/11/17 2105: Urine Opiates Screen < 100, Methadone Screen 50, Barbiturate Screen < 60, Ur Phencyclidine Scrn < 6.00, Amphetamines Screen 234, U Benzodiazepines Scrn < 85, Urine Cocaine Screen < 50, Urine Cannabis Screen > 80.00 H Past History Past Medical History Neurological: NONE EENT: NONE Cardiovascular: NONE Respiratory: NONE Gastrointestinal: NONE Hepatic: NONE Renal: NONE Musculoskeletal: NONE Psychiatric: anxiety, bipolar disease, depression Endocrine: NONE Blood Disorders: NONE Cancer(s): NONE [employer]/Reproductive: NONE Past Surgical History Surgical History: non-contributory Psychosocial History Strengths/Capabilities: Pt is able to articulate his wants and needs. Pt has a supportive family. Pt is connected to treatment at present. Physical Limitations (Interventions): None identified. Psychiatric Treatment History Psych Treatment Psychiatric Treatment Yes Inpatient Treatment Yes Outpatient Treatment Yes Location of Treatment [facility], other [facility], [facility], [facility] Reason for Treatment Bipolar disorder and alcohol and drug abuse. Dates of Treatment 2005 to present Response to Treatment Pt. relapses frequently Diagnosis by History: Per pt's self-report, bipolar d/o, and cannabis use d/o Substance Use/Abuse History Drug Use/Abuse 1 Substances Used/Abused Yes Substance Used/Abused Alcohol First Use Age 22 Last Used last night How much used/taken 2 pints vodka How often daily For how long last few weeks but on and off since 22 yrs old Route of use oral Drug Use/Abuse 2 Substances Used/Abused Yes Substance Used/Abused Marijuana First Use unk Last Used a few days ago How much used/taken unk How often daily For how long last few weeks? Route of use smoke Substance Abuse Treatment Substance Abuse Treatment Past Substance Abuse [place] Yes Inpatient Treatment No Outpatient Treatment Yes Location of Treatment [facility] Reason for Treatment ETOH and Cannabis Abuse Dates of Treatment 2005 to present Response to Treatment relapse Current Mental Status Mental Status Orientation: Person, Place, Situation Affect: Angry, Sad Speech: WNL Neuro-vegetative: Concentration Poor, Energy Decreased, Loss of Interest, Sleep Disturbance Appearance Appearance- Dress/Hygiene: Well groomed hair, cut short, [place], emitting body odor, feet cracked on bottom and dirty. Behaviors Thought Process: WNL Thought Content: WNL Memory: WNL Insight: Fair SI/HI Risk Assessment Past Suicidal Ideation/Attempts Yes Current Suicidal Ideation/Att No Past Homicidal Ideation/Att: No Current Homicidal Ideation/Attempts No Degree of Intent: Thoughts/No Intent Danger To: Self Gravely Disabled: Lack of Insight, Poor Impulse Control, Poor Judgment Risk Factors: access to lethal means, high anxiety/distress, history of suicide atmpts, SA/MH hospitalized, substance abuse, isolate/no social support, poor impulse control, lack of outcome concern, male Lethality Ratin PTSD Checklist PTSD Score: PTSD Score: Response Value Disturbing memories,thoughts,images of stressful experience? Extremely 5 Disturbing dreams of stressful experience from past? Not at all 1 Suddenly acting/feeling as if reliving stressful experience? Not at all 1 Unpleasant feeling when reminded of stressful experience? Quite a bit 4 Physical reactions when reminded of stressful experience? Moderately 3 Avoid thinking/talking of stressful exp. to avoid reactions? A little bit 2 Avoid activities/situations that remind of stressful exp.? Not at all 1 Trouble remembering important parts of stressful experience? Not at all 1 Loss of interest in things that you used to enjoy? Extremely 5 Feeling distant or cut off from other people? Extremely 5 Feeling emotionally numb/unable to love those close to you? Extremely 5 Feeling as if your future will somehow be cut short? Extremely 5 Trouble falling or staying asleep? Extremely 5 Feeling irritable or having angry outbursts? Extremely 5 Having difficulty concentrating? Moderately 3 Being super alert or watchful on guard? A little bit 2 Feeling jumpy or easily startled? A little bit 2 Total 55 ED Management Sitter: Yes Restraints: Yes DSM5/PS Stressors/Medical Prob Diagnosis' (DSM 5, Stressors, Medical): F31.9 Bipolar Disorder Unspecified. F10.20 Alcohol Use Disorder Severe F12.20 Cannabis Use Disorder Severe Current GAF: 30 Departure Disposition Psych Medical Clearance Date: 10/12/17 Date Disposition Established: 10/12/17 Time Disposition Established: 914 Plan for Disposition - Modality: Inpatient Psychiatry Facility: [facility] Rationale for Disposition: Pt. attemtped suicide 5 days ago, he reported he is pre-occupied with after witnessing his father's attempted suicide when he was in High School. He is irritable and reports thoughts of suicide when feeling bad but not currently. Pt. should be kept with the intention of IP hospitalization. No beds currently , bed search will be performed. Type of IP Admission: PEC Additional Instructions: Pt. not happy about the disposition, says he will not voluntarily sign in. Father informed about disposition. Father is in agreement and states his son drinks to the point of hurting himself and having no control over his actions with the added risk of SI intention of self harm. Referrals Diandra Fonseca APRN (PCP/Family)
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
[2017-10-13 13:35] VITALS: BP 145/90
[2017-10-13 15:58] VITALS: BP 145/90
[2017-10-13 15:59] VITALS: BP 138/82
[2017-10-13 19:44] VITALS: BP 138/84
[2017-10-13 19:49] VITALS: BP 138/84
[2017-10-14] VITALS (7 sets, daily range): BP systolic 132–140; BP diastolic 80–89
--- NOTE | 2017-10-14 05:15 | History & Physical ---
General Information and HPI MD Statement: I have seen and personally examined MICHELLE BOLES and documented this H&P. The patient is a 37 year old M who presented with a patient stated chief complaint of depression, suicidal ideation, h/o overdose of gabapentin 5 days ago.. Source of Information: patient, old records Exam Limitations: clinical condition, severely depressed History of Present Illness: The patient is a 37 yo male with h/o depression/bipolar disorder who presented in the ED after making a call to a Bipolar Crisis Hotline requesting ambulance evaluation. He noted worsening depression and endorsed an attempted overdose with gabapentin 5 days prior. At the time of my exam he appeared clinically depressed. He has had racing thoughts and increased alcohol and cannibis use. Allergies/Medications Allergies: Uncoded Allergies: "ANTI PSYCHOTIC DRUGS" (UNKNOWN 10/29/16) Home Med list Cariprazine HCl (Vraylar) 3 MG CAPSULE 1 CAP PO DAILY MENTAL HEALTH (Reported ) Citalopram Hydrobromide (Celexa) 40 MG TABLET 1 TAB PO DAILY MENTAL HEALTH ( Reported) Gabapentin 300 MG CAPSULE 1 CAP PO TID MENTAL HEALTH (Reported) Hydroxyzine Hydrochloride (Atarax) 50 MG TABLET 2 TAB PO QPM SLEEP (Reported) [place] Carbonate 600 MG CAPSULE 1 CAP PO BID MENTAL HEALTH (Reported) Lurasidone HCl (Latuda) 40 MG TABLET 1 TAB PO QPM MENTAL HEALTH (Reported) Mirtazapine 30 MG TABLET 1 TAB PO QPM SLEEP HELP (Reported) Olanzapine 5 MG TABLET 1 TAB PO QPM MENTAL HEALTH (Reported) Propranolol HCl 20 MG TABLET 1 TAB PO TID UNKNOWN (Reported) Propranolol HCl 10 MG TABLET 1 TAB PO BID HTN (Reported) Quetiapine Fumarate 100 MG TABLET 1 TAB PO QPM SLEEP (Reported) Quetiapine Fumarate 50 MG TABLET 1 TAB PO QPM SLEEP HELP (Reported) Trazodone HCl 50 MG TABLET 2 TAB PO QPM SLEEP (Reported) Compliance With Home Meds: UNKNOWN Past History Travel History Traveled to [place] past 21 day No Medical History Neurological: NONE EENT: NONE Cardiovascular: NONE Respiratory: NONE Gastrointestinal: NONE Hepatic: NONE Renal: NONE Musculoskeletal: NONE Psychiatric: anxiety, bipolar disease, depression Endocrine: NONE Blood Disorders: NONE Cancer(s): NONE 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 History of MRSA: No History of VRE: No History of CDIFF: No Isolation History: Standard Surgical History Surgical History: non-contributory, LEFT ELBOW FX & ORIF Past Family/Social History Family History Relations & Conditions if any MOTHER (BIPOLAR). FATHER (DEPRESSION). Psychosocial History Where do you live? 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 EENTM: Denies: no symptoms. Cardiovascular: Denies: no symptoms. Respiratory: Denies: no symptoms. GI: Denies: no symptoms. Genitourinary: Denies: no symptoms. Musculoskeletal: Denies: no symptoms. Skin: Denies: no symptoms. Neurological/Psychological: Reports: anxiety, depressed, emotional problems. Hematologic/Endocrine: Denies: no symptoms. Immunologic/Allergic: Denies: no symptoms. Exam & Diagnostic Data Last 24 Hrs of Vital Signs/I&O Vital Signs Date Time Temp Pulse Resp B/P B/P Pulse O2 O2 Flow FiO2 Mean Ox Delivery Rate 10/13 2138 87 138/84 10/13 194 96.4 87 138/84 10/13 1944 96.4 87 138/84 10/13 1559 81 138/82 10/13 1559 81 138/82 10/13 1558 96.9 82 145/90 10/13 1335 96.9 82 145/90 10/13 1247 98.0 68 18 120/70 98 Room Air 10/13 1121 97.0 77 18 121/78 97 10/13 0859 97.3 84 18 137/79 97 10/13 0758 97.1 76 16 140/80 98 Room Air 10/13 0643 98.7 64 16 126/70 96 Room Air Intake & Output 10/14 0800 10/14 0000 10/13 1600 Intake Total Output Total Balance Patient 210 lb Weight Physical Exam General Appearance Alert, Oriented X3, Cooperative, Mild Distress (DEPRESSED) Skin No Rashes, No Breakdown, No Significant Lesion HEENT Atraumatic, PERRLA, EOMI, Mucous Membr. moist/pink Neck Supple, No JVD, No thryomegaly, +2 Carotid Pulse wo Bruit, No LAD Cardiovascular Regular Rate, Normal S1, Normal S2, No Murmurs Lungs Clear to Auscultation, Normal Air Movement Abdomen Normal Bowel Sounds, Soft, No Tenderness, No Hepatospenomegaly, No Masses Neurological Exam Findings: Normal Gait, Normal Speech, Strength at 5/5 X4 Ext, Normal Tone, Sensation Intact, Cranial Nerves 3-12 NL, Reflexes 2+ Cranial Nerves II through XII: INTACT Extremities No Clubbing, No Cyanosis, No Edema, Normal Pulses, No Tenderness/ Swelling Vascular Normal Pulses, Pulses Symmetrical Last 24 Hrs of Labs/Wally: SEE ED NOTE Assessment/Plan Assessment: Impression/Plan: #Depression/Suicidal Ideation- as above, patient presents in ED requesting assistance. Previously was seen at [facility] and had gone until when ended 3 weeks ago. Has h/o bipolar on [place]. Has had some racing thoughts. Plan: Admit to [facility]/Psychiatry for treatment. As per psychiatry team. #EtOH Abuse/Withdrawal- patient admits to increased EtOH use. Plan: CIWA, Ativan, MVI, thiamine, folic acid, etc. as per detox protocol. #Cannibis Use-as per psych note has been using frequently. Plan: As per psychiatry. #Nicotine Dependence- smoking 2 ppd. Plan: Agree with nicotine patch. Smoking cessation counseling. As Ranked By This Provider Problem List: 1. Bipolar 1 disorder 2. Depression with suicidal ideation 3. Alcohol dependence with intoxication 4. Nicotine dependence with current use 5. Cannabis use disorder, mild, abuse Miscellaneous Miscellaneous Documentation Attending Case Discussed With: Hernan SANTANA,Lud[place] Primary Care Physician: Diandra Fonseca APRN Patient sees these Specialists NONE Level of Patient Care: [facility] Consults Needed: Consulting Physician: NONE Attending MD Review Statement Attending Statement Attending MD Statement: examined this patient, reviewed EMR data (avail), amended to note Attending Assessment/Plan: As above.
--- NOTE | 2017-10-14 10:48 | CPS PROVIDER INIT ASMT PSYCH ---
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 History of MRSA: No History of VRE: No History of CDIFF: No Isolation History: Standard Healthly Behaviors Screening Tobacco Screening Tobacco Use from ED Docu: Current Daily Use Daily Tobacco Use Amount/Type: => 5 Cigarettes daily - If tobacco counseling indicated - the following topics are required. - #1 Recognizing dangerous situations. - #2 Coping Skills. - #3 Basic information about quitting. Alcohol Screening - ETOH screen POS if BAL >=80 or Audit-C>= M4/F3 Audit-C Score from Diag Assess: 12 - If ETOH counseling indicated - the following topics are required. - #1 Express concern about the patient's - drinking at unhealthy levels, include informing - of national norms for moderate drinking: - men <= 14 drinks/week, max 4 drinks/occasion - women <= 7 drinks/week, max 3 drinks/occasion - #2 Providing feedback, including linking alcohol to - negative physical effects (liver injury, hypertension) - negative emotional effects (relationship problems and - depression) - negative occupational consequences (reduced work - performance) - #3 Advising the patient to abstain from alcohol or - to drink below national norms for moderate drinking - (as listed above). Metabolic Screening - Screen if on a Neuroleptic Medication - Metabolic screening should include: - Blood Pressure, BMI, Glucose or Hgb A1c, & a - Lipid profile from within the past 365 days. Exam and Plan Impression/Plan - Include all active medical diagnosis that require tx - Initial Tx Plan for Active Psych & Medical Conditions - Factors that would help patient function - in a less restrictive setting.
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
--- NOTE | 2017-10-14 14:24 | CPS PROVIDER INIT ASMT PSYCH ---
Psychiatric Admission Retail Merchandising Manager's Note Reviewed: Yes Patient Seen and Examined: Yes Identifying Information: 37 yo SWM with bipolar d/o and substance abuse hx who was admitted on 10/13/17 on a PEC from ER. Chief Complaint: Called a suicide hotline and was sent here. On the night of 10/09/17, took ~#35 gabapentin 300 mg to sleep, not to kill himself. Reaction to Hospitalization: "I'm in here and I'm really not in a good mood." Eager for discharge. Upset he has missed first 2 days of work at new job. History of Present Illness Onset of Illness: Chronic. Was using MJ for a couple of weeks and off psychiatric medications for a couple of weeks. Overused gabapentin on 10/09/17. Circumstances Leading to Admission: Called suicide hotline in context of passive SI. Off medications and using MJ x ~2 weeks. Overused gabapentin on 10/09/17. Problem(s) Justifying Need for Admission: Suicide risk. Off medications. Other HPI: "I was sitting home the other day (10/11/17) not feeling that great." Had passive SI for a few hours that morning and called suicide hotline just to talk to someone. They called an ambulance. Patient feels "p*ssed" he ended up being hospitalized. Feels he was tricked into coming here. Upset he is missing 2 days of work at new job. "It's f*cking b*llshit." Sleep: reports he slept well last night. Appetite: not too good. Reports he hasn't really had an appetite x 1 week or so. Denies weight change. Energy: low. Past Psychiatric History Past Diagnosis(es)- if any: anxiety, bipolar d/o, depression Past Precipitating Factors- if any: Unknown. - Include inpatient and outpatient treatment Treatment History: OPT at [facility] with CHANTEL Ashley and Isabelle, therapist. Inpatient 5-6x: [facility] Sanchez, [facility]. IOP: [facility], , . History of Suicide Attempts or Gestures Denies. States recent gabapentin overdose was not a suicide attempt. Substance Abuse History: Tobacco at 2 ppd. Alcohol: 2x/3months. No alcohol in 2 months. MJ: [facility] ~3 weeks ago. Cocaine: 1-2x 10-12 years ago. No opiates. Allergies: Uncoded Allergies: "ANTI PSYCHOTIC DRUGS" (UNKNOWN 10/29/16) Home Med List: Celexa 40 mg daily Gabapentin 300 mg 3x/day Propranolol 10 mg b.i.d. for hypertension Latuda 40 mg daily Trazodone 100 mg qhs - Include any medical condition(s) that may - impact the patient's recovery/remission Past Medical History: Hypertension. Past History Medical History Neurological: NONE EENT: NONE Cardiovascular: NONE Respiratory: NONE Gastrointestinal: NONE Hepatic: NONE Renal: NONE Musculoskeletal: NONE Psychiatric: anxiety, bipolar disease, depression Endocrine: NONE Blood Disorders: NONE Cancer(s): NONE GREASE MAKER HEAD/Reproductive: NONE Other Medical Hx: H/O left elbow and wrist fractures and surgery several years ago. History of MRSA: No History of VRE: No History of CDIFF: No Isolation History: Standard Surgical History Surgical History: Hx L elbow and wrist fx's and surgery. Psychiatric Family/Social Hx Family History Psychiatric Illness: Mother: bipolar d/o, medications unknown to patient. Father attempted suicide by pill OD and vodka. Patient found him (patient was 18). Father is not in treatment. Maternal uncle schizophrenia. Hanged self in [facility]. Substance Use: Father recovering alcoholic. Multiple maternal relatives alcoholics. Suicides: Maternal uncle hanged himself. Social History Living Situation: Lives with father in [place]. Significant Relationships (family/friends): Parents when patient was 14-17 y.o. Lives with father. Mother lives in [place]. Has a brothere, 38, who lives in [place]. They are fairly close. No children. Education: HS graduate. 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 Legal: Hx 2 DUIs. Healthly Behaviors Screening Tobacco Screening Tobacco Use from ED Docu: Current Daily Use Daily Tobacco Use Amount/Type: => 5 Cigarettes daily - If tobacco counseling indicated - the following topics are required. - #1 Recognizing dangerous situations. - #2 Coping Skills. - #3 Basic information about quitting. Status of Tobacco Cessation Counseling: #1, #2 AND #3 Completed Cessation Med Status Nicotine Patch Ordered Alcohol Screening - ETOH screen POS if BAL >=80 or Audit-C>= M4/F3 Audit-C Score from Diag Assess: 12 Blood Alcohol Level: Laboratory Tests 10/11 2109 Toxicology Serum Alcohol (<10 MG/DL) 264.0 Alcohol Use Screening Results: Pos per Audit C &/or BAL - If ETOH counseling indicated - the following topics are required. - #1 Express concern about the patient's - drinking at unhealthy levels, include informing - of national norms for moderate drinking: - men <= 14 drinks/week, max 4 drinks/occasion - women <= 7 drinks/week, max 3 drinks/occasion - #2 Providing feedback, including linking alcohol to - negative physical effects (liver injury, hypertension) - negative emotional effects (relationship problems and - depression) - negative occupational consequences (reduced work - performance) - #3 Advising the patient to abstain from alcohol or - to drink below national norms for moderate drinking - (as listed above). Status of ETOH Use Counseling: #1, #2 AND #3 Completed. Metabolic Screening - Screen if on a Neuroleptic Medication - Metabolic screening should include: - Blood Pressure, BMI, Glucose or Hgb A1c, & a - Lipid profile from within the past 365 days. Metabolic Screening () Not Applicable, patient not on a neuroleptic. OR () Patient on a neuroleptic(s) . Enter below results for Hemoglobin A1C, and lipid panel if obtained during the last 365 days. BMI: Blood Pressure: 132/86 Laboratory Results From [facility] (If applicable): [x] Lab Cholesterol 257 MG/DL H 10/11/172109 Cholesterol/HDL Ratio 6 % H 10/11/172109 HDL Cholesterol 45 mg/dL 10/11/172109 Hemoglobin A1c 5.2 % 10/11/172109 LDL Cholesterol Direct 140.42 mg/dL H 10/11/172109 LDL Cholesterol, Calc ND mg/dL 10/11/172109 Triglycerides 495 mg/dL H 10/11/172109 . Exam and Plan Mental Status Examination Ambulation Status: Ambulation is WNL. Appearance: Tall, thin WM in waffle pattern shirt and scrub pants, bearded, sitting in a chair in NAD. Attitude towards examiner: Calm, polite and cooperative. Psychomotor activity: There is no psychomotor agitation/retardation. Behavior: Unremarkable. Quality of speech: Normal in volume, rate and tone. Affect: Unhappy to be here. Affect is calm and depressed. Mood: "Down." Sad 01/13. Anxiety 02/13. Denies feeling hopeless, helpless, worthless or guilty. Suicidal Ideation: Denies active and passive SI. Homicidal Ideation: Denies HI. Hallucinations: Denies AH and VH. Paranoid/Delusional Material: Denies PI and magical dwyer. Difficulties with thought organization: There is no apparent thought d/o or delusions. Insight: Fair to good. Judgment: Was poor. Good now. Orientation: Ox3 except date 10/13 or 04/23. Cognition: Grossly intact. Memory Function: Grossly intact. Estimate of intellectual functioning: Average. Assets/Strengths Patient Identified Assets/Strengths: Kind person. Intelligent. Hard-worker. Athletic: golf and basketball. Impression/Plan Impression and Plan: The patient is here after a call to a suicide hotline [employer]. He overused gabapentin (took ~25 pills to sleep) on 10/09/17. Was using MJ and off psychiatric medications for a couple of weeks. - Include all active medical diagnosis that require tx DSM 5 Diagnosis(es): Bipolar disorder, depressed. Alcohol use disorder. Cannabis use disorder. - Initial Tx Plan for Active Psych & Medical Conditions Treatment Plan: The patient will be monitored on the unit for safety, alcohol withdrawal and mood disorder. Home medications have been restarted. Additional information is needed from collaterals (father and [facility] treaters). Anticipate once clinically stable, that the patient will be discharged to [facility] and return to treatment at [facility]. - Factors that would help patient function - in a less restrictive setting. Factors: Not suicidal.
--- NOTE | 2017-10-14 16:09 | SOCIAL WORKER PROG NOTE PSYCH ---
Social Work Progress Note Progress Note Pablo was in his room resting. Got up when prompted to meet. He reported his mood has been up and down today. Shared that he stopped taking his medications about a month ago and this is what the main precipitant was to him having current symptoms of depression and SI. He said he stopped taking his meds because they were causing him to feel tired and causing weight gain. He also said "I was hoping to be manic again." He was disappointed that he got depressed. Has a hx of BiPolar D/O. Shared that last he took a bunch of Neurontin in an attempt to get high and fall asleep. He didn't intend to kill himself, but said he didn't care if he did in the process. On Friday he called the suicide hotline and they ended up sending an ambulance to his house, which then brought him here. He denies any hx of suicide attempts. Reports no SI today. He was supposed to start a job at [employer] yesterday. He isn't too sure if he will have this job when he leaves. I asked if he called ? He said he doesn't feel up to talking to anyone right now. Said he thinks his Mom may have called. He said he is thinking about applying for disability because he really hasn't been able to keep a job very long for the past 3 years. He is currently in tx at [facility] in [place]. He has a prescriber there and was supposed to start seeing a therapist, but hasn't yet. He was in their IOP for 2 months and is transitioning to just outpatient. He finished IOP a month ago. He is not interested in returning to [facility]. He relapsed with alcohol in the past few weeks. He said he drank a few times. He said he has issues with addiction and doesn't want to be an addict anymore. He has been using cannabis and stated that he wants to get a medical marijuana card, because he feels better when he smokes. He is currently living with his Father. He reports their relationship is ok, but Dad doesn't understand mental illness. He feels Mom is supportive. Parents are seperated. He is open to having family in for a meeting.
--- NOTE | 2017-10-14 17:33 | PN- Att Addend ---
Attending Addendum Attending Brief Note #Hyperlipidemia- as noted by nursing chol 250 - elevated LDL/TG (?if fasting). Would suggest heart healthy diet at present and OP follow-up with his PCP ( Diandra Fonseca APRN) when ready for discharge.
[2017-10-15] VITALS (8 sets, daily range): BP systolic 122–140; BP diastolic 70–97
[2017-10-15 08:23] LABS: ABSOLUTE BASOPHIL COUNT 0 /CUMM (0.0-0.2); ABSOLUTE EOSINOPHIL COUNT 0.5 /CUMM (0.0-0.7); ABSOLUTE GRANULOCYTE CT 5.6 /CUMM (1.4-6.5); ABSOLUTE LYMPH COUNT 3.2 /CUMM (1.2-3.4); ABSOLUTE MONOCYTE COUNT 0.8 /CUMM (0.10-0.60); BASOPHIL % 0.4 % (0.0-2.0); EOSINOPHIL % 4.6 % (0-5); GRANULOCYTE % 55.2 % (42.2-75.2); HEMATOCRIT 46.9 % (42-52); MEAN CORPUSCULAR HGB 30.3 PG (27.0-31.0); MEAN CORPUSCULAR HGB CONC 33.7 G/DL (33.0-37.0); MEAN CORPUSCULAR VOLUME 89.9 FL (80.0-94.0); MEAN PLATELET VOLUME 10.7 FL (7.4-10.4); PLATELET COUNT 217 /CUMM (130-400); RBC DISTRIBUTION WIDTH 13.1 % (11.5-14.5); RED BLOOD CELL CT 5.21 /CUMM (4.70-6.10); WHITE BLOOD CELL COUNT 10.1 /CUMM (4.8-10.8)
--- NOTE | 2017-10-15 09:12 | SOCIAL WORKER PROG NOTE PSYCH ---
Social Work Progress Note Progress Note Called Mr. Patrick to set up a family meeting, but there was no answer. I was able to contact Mrs. Patrick. She said his Father is probably working and difficult to get a hold of. She is available to come in at 3pm today and will try and reach his Father to see if he is available as well. Mom and I spoke later, she said Dad wasn't available but his Brother Dennis will be coming. Family meeting held at 3pm. Pablo reported improved mood today, but stated it changes frequently depending on the day. Shared that he felt like he had some manic symptoms today. When asked what? He said he felt like he was special/ different like he had special abilities. No SI today. Mom shared that she has been diagnosed with Bipolar D/o and that she is currently being treated on a mood stabilizer and in therapy. Family expresssed their concerns about his addiction/ relapses with alcohol and cannabis. They would like him to try something different as what he has been doing hasn't been working for him. Pablo is resistant to rehab. Said he has never been and he doesn't feel it would help. He is struggling with the thoughts though that he can't stay sober and his mental health is worse than it had been in the past. We talked about how smoking cannabis could be exacerbating his symptoms. Talked about how he seems to have a pattern of self-sabotage. He said when things are going well he is bored. Family didn't seem to have any concerns around him intentionally harming himself, but said he definitely has risks related to his drinking/ drug use. Talked about his follow up at [facility]. He shared that he doesn't like his prescriber at [facility], but would like to return to [facility]. We talked about him having other options like [facility]. He said he would consider that. Discussed d/c for Friday.
--- NOTE | 2017-10-15 12:05 | CP SOUTH PROGRESS NOTE PSYCH ---
Psych (Inpt) Progress Note Progress Note Include the following elements, when applicable: Involvement in the active treatment of the patient with behavioral observations of the patient and the patient's response to the treatment. Review of the ongoing treatment process in the context of the treatment plan. Indication of how multi-disciplinary staff members are carrying out the treatment plan. Plans for future interventions and recommendations for revision of the treatment plan. Liaison with other physicians/providers. Progress Note: Case and treatment plan discussed in team meeting. Staff reports that the patient is denying suicidal ideation. Did not have a good evening. Reported that he felt crazy and needed to talk to the doctor. Calmed down. Patient seen at 10:49 AM. He was in group prior to meeting with me in office. Reports doing well today. States he feels much better than he did yesterday. Reports that yesterday was kind of rough for him with wild, uncontrolled mood swings. Affect is calm and blunted. Patient reports that he and his mother want him to be on a higher dose of Latuda. Patient agrees to increase dose to 60 mg daily. Mood is calm. Reports yesterday he was really anxious to leave. Patient feels more patient and accepting today. States he is thinking more clearly. Rates sad mood 3/10 and anxiety 4/10. Denies feeling hopeless, helpless or worthless. He feels guilty for putting his family through this situation. Reports that he hurt family members badly with his illness and substance abuse. Denies active and passive suicidal ideation. Denies homicidal ideation. Denies auditory and visual hallucinations and paranoid ideation. Reports he slept poorly. Agrees to the addition of melatonin. States appetite is all right. States energy is decent today. Patient is anticipating family meeting with mother this afternoon. IMPRESSION: Slow progress. Continue present treatment plan. Continues to require inpatient level of care. Monitor response to increase in Latuda dose to 60 mg daily and addition of melatonin 3 mg nightly for insomnia. Anticipate likely discharge on Friday.
[2017-10-16] VITALS (8 sets, daily range): BP systolic 132–140; BP diastolic 74–100
--- NOTE | 2017-10-16 11:49 | SOCIAL WORKER PROG NOTE PSYCH ---
Social Work Progress Note Progress Note MICHELLE MENDOZA [id number] 1980 MICHELLE MENDOZA [id number] Pended Authorization # Client Authorization # Type of Request [id number] CONCURRENT Date of Admission/ Start of Services Requested From Submission Date 10/13/2017 10/16/2017 10/16/2017
--- NOTE | 2017-10-16 14:00 | CP SOUTH PROGRESS NOTE PSYCH ---
Psych (Inpt) Progress Note Progress Note Include the following elements, when applicable: Involvement in the active treatment of the patient with behavioral observations of the patient and the patient's response to the treatment. Review of the ongoing treatment process in the context of the treatment plan. Indication of how multi-disciplinary staff members are carrying out the treatment plan. Plans for future interventions and recommendations for revision of the treatment plan. Liaison with other physicians/providers. Progress Note: Case and treatment plan discussed in team meeting. Staff reports that the patient denies SI. Pleasant and cooperative. Talked about his concern about the potential for repeating the pattern of stopping medications and using substances. Family meeting took place yesterday with mother and brother. Patient told staff yesterday that he felt manic, believing he was special/ gifted. Patient seen at 10:00 AM. Feels pretty good. Reports he is slightly anxious. Reports he was relaxed all day yesterday but woke up this morning anxious for some reason, perhaps because he is eager for discharge and misses cigarettes. Rates sad mood 10 and anxiety /10. Denies feeling hopeless, helpless, worthless or guilty. Denies active and passive suicidal ideation. Denies homicidal ideation. Denies auditory and visual hallucinations and paranoid ideation. Reports he had weird thoughts yesterday that he was a special person, "like super-inflated self-esteem type thoughts." Does not have these thoughts/ feelings today and feels "more [id number] today." Reports he slept better. Appetite is good. Energy "I can't tell, it's probably fine." Tolerating medications well, without complaint. I asked about prior medication trials with mood stabilizers. Reports he took Depakote and lithium in the past. He did not like them despite giving each of them about a 2 month trial. Patient believes that Latuda is good for him and he reports it has been the best medication he has found so far. IMPRESSION: Slow progress. Continue present treatment plan. Anticipate likely discharge on Friday to home.
--- NOTE | 2017-10-16 15:31 | SOCIAL WORKER PROG NOTE PSYCH ---
Social Work Progress Note Progress Note Pablo appeared to be doing well today. Reported some anxiety this morning. Mood has been stable. Stated that he gets a little upset because he feels his family is pushing him and that he gets upset about not feeling in control. He understands that family is looking for him to break a cycle that he's been in and that it is going to take a while for them to trust him. 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 His Brother is an auto electrician and he can use help with cleaning things and other manual work. He is going to take him up on the offer. He feels his Brother and him work well together. Talked about the experience of boredom and why he feels things go wrong for him. Asked what was so exciting when he wasn't doing well? He said nothing really. He has to feel okay with mediocrity. Talked about finding ways to add passion/ excitement to his life without substances. He said he has had a passion for golf and he really wants to get back to playing. He also enjoys doing art and can see himself painting in his backyard. He also spoke about spending time with neices and nephews and how much he enjoys that. He wants to do well for himself and for his family. He said he was tired of hurting them. Pablo is interested in going to [facility] at discharge. Told him I would be scheduling his intake for Friday.
[2017-10-17] VITALS (8 sets, daily range): BP systolic 100–142; BP diastolic 78–89
--- NOTE | 2017-10-17 10:48 | CP SOUTH PROGRESS NOTE PSYCH ---
Psych (Inpt) Progress Note Progress Note Include the following elements, when applicable: Involvement in the active treatment of the patient with behavioral observations of the patient and the patient's response to the treatment. Review of the ongoing treatment process in the context of the treatment plan. Indication of how multi-disciplinary staff members are carrying out the treatment plan. Plans for future interventions and recommendations for revision of the treatment plan. Liaison with other physicians/providers. Progress Note: Case and treatment plan discussed in team meeting. Staff reports that the patient is denying SI. We heard in report that he slept very well. Happy he is here. Patient seen at 10:38 a.m. Was in group prior to meeting with me in office. "I feel good this morning." Affect is calm and euthymic. Plans to attend [facility]. "This time I have to take my medication properly." We discussed ways to assist medication compliance. He will consider enlisting his father's help but he does not want a visiting nurse, which would "make me feel not capable of doing it on my own." Mood is good. Sad 07/16. Anxiety 09/13. Denies feeling hopeless, helpless, worthless or guilty. Denies active and passive SI, HI, AH, VH and PI. States sleep was not great, up around 2 a.m. with a nightmare, which he relates to having forgotten to remove nicotine patch when he went to bed. Appetite: good. Energy: good. Tolerating medications well, without complaint. IMPRESSION: Condition improving. Continue present treatment plan. Anticipate discharge on Friday to [facility] intake then to home and father.
--- NOTE | 2017-10-17 11:38 | SOCIAL WORKER PROG NOTE PSYCH ---
Social Work Progress Note Progress Note Called TAYLOR and got a voicemail. Left a message indicating Pablo's preferece at this time to come to the dual IOP at [place]. Asked for a call back if needed. Attempted to call Mr. Celina Shah's Father. The phone rings and then a message says that this green party cannot be reached. He is most likely working. IOP intake is scheduled for Friday at 1:15pm. Met with Pablo and informed him of his intake appt. He said his Mom will most likely pick him up after his eval. He reports being in a good place today. Reports no depression or elevated mood. Asked if he was having thoughts about having special dwyer? He said no. Said his self esteem was a little elevated, but he thinks that is a good thing right now. Talked about his Dad being involved with holding/ monitoring his medication. He is open to that, but not a VNS. We also talked about setting alarms on his cell phone as medication reminders, because in the past he would forget. Asked if he was still concerned about weight gain on the meds? He said it is a concern, but he is planning to exercise more, play golf, and watch what he eats. Said he definetely sees a difference from when he came in. Attributes it to being back on his meds. Called Mrs. Patrick and talked about the discharge plan. Told her we are recommending that Dad holds his meds. She said Dad has done that before and they will do that. She will pick him up at 2pm across the [address] at [facility]. She will be visiting Pablo before then.
[2017-10-18] VITALS (8 sets, daily range): BP systolic 122–146; BP diastolic 72–88
--- NOTE | 2017-10-18 09:57 | [facility] PROGRESS NOTE PSYCH ---
Psych (Inpt) Progress Note Progress Note Include the following elements, when applicable: Involvement in the active treatment of the patient with behavioral observations of the patient and the patient's response to the treatment. Review of the ongoing treatment process in the context of the treatment plan. Indication of how multi-disciplinary staff members are carrying out the treatment plan. Plans for future interventions and recommendations for revision of the treatment plan. Liaison with other physicians/providers. Progress Note: Stated that he has been doing well, slept well all night. Appetite is good. Stated that he is looking forward to discharge on Friday. Mood is improved and he has almost full range of affect. Discussed barriers to succeeding in IOP in the past relapsing on marijuana, he stated that this time, he will take all of his meds in the morning which will improve his adherence, and that in the spring /summer he has more things to do (yard work, spending time outside which is a big hobby of his) and will have to rely less on marijuana as he did in the winter when he was indoors much of the time. Stated that he is confident he will get through the whole IOP program. Parents will visit this weekend. MSE: tall slim man, calm, cooperative, with fairly well groomed [place]. He is quiet and polite, with fair eye contact. He is coherent and rational. His speech is normal. Thinking is void of delusional materials, thoughts to harm himself or anyone else. There are no hallucinations and he is not internally preoccupied. His cognition appears intact, insight and judgment are adequate. A: 37 year old gentleman with history of psychiatric treatment, admitted about 10 days ago after overuse of over 25 gabapentin to sleep, in context of some vague SI per some notes. He was angry and agitated early in admission but appears to have stabilized sufficiently. His risk factors of drug use, recent poor judgment and poor history of treatment adherence are mitigated by his coherent, future oriented plans (live with father, work outside, take meds in fewer times per day), in addition to family support father will hold meds, mother will pick him up family will visit, and absence of psychosis or thoughts to harm self/others. Plan: continue current plan, stabilizing for discharge Friday likely.
[2017-10-19 07:38] VITALS: BP 129/84
[2017-10-19 07:40] VITALS: BP 129/84
--- NOTE | 2017-10-19 11:14 | [facility] PROGRESS NOTE PSYCH ---
Psych (Inpt) Progress Note Progress Note Include the following elements, when applicable: Involvement in the active treatment of the patient with behavioral observations of the patient and the patient's response to the treatment. Review of the ongoing treatment process in the context of the treatment plan. Indication of how multi-disciplinary staff members are carrying out the treatment plan. Plans for future interventions and recommendations for revision of the treatment plan. Liaison with other physicians/providers. Progress Note: Went to group this morning, reflecting on positive times in his life in the past. Stated that he was happier when he was 32 years old with a stable job, a relationship and no mental health problems. Stated that he hopes to get where he was then pretty soon. Will go to IOP appt, then will trim his [place] and catch up with his cat. Stated that he hopes that this IOP will go well and he will stabilize. Sleeping and eating well. MSE: tall slim man, calm, cooperative, with fairly well groomed [place]. His eye contact is more avoidant today but he is still well related, and appropriate. His speech is regular rate and volume. His affect is constricted and mood is neutral. His thinking is goal oriented, no delusional thinking, no evidence of thoughts to harm self/others. His cognition appears intact, insight and judgment are adequate. A: 37 year old gentleman with history of psychiatric treatment, admitted about 10 days ago after overuse of over 25 gabapentin to sleep, in context of some vague SI per some notes. He was angry and agitated early in admission but appears to have stabilized sufficiently. His risk factors of drug use, recent poor judgment and poor history of treatment adherence are mitigated by his coherent, future oriented plans (live with father, work outside, take meds in fewer times per day), in addition to family support; and absence of psychosis or thoughts to harm self/others. Plan: continue current plan, stabilizing for discharge Friday. d/c CIWA as he has not been scoring.
[2017-10-19 12:09] VITALS: BP 132/79
[2017-10-19 15:47] VITALS: BP 138/84
[2017-10-19 19:00] VITALS: BP 139/98
[2017-10-20 07:51] VITALS: BP 113/69
--- NOTE | 2017-10-20 10:04 | SOCIAL WORKER PROG NOTE PSYCH ---
Social Work Progress Note Progress Note Met with Pablo along with Dr. Becerra this morning. He stated he is ready to discharge reports no SI/HI, no AH/VH. He is planning to live with his Father. He reports he will remain abstinent from alcohol and cannibis. He has an intake at [facility] today at 1:15pm. He signed an GLENNA for his Mother - had a phone conference meeting [facility] Marlene Melara . Discussed discharge plan, recommendation to have Pablo ' Father use a lock box for Pablo' medications and assist in administering medications. Discussed attending AA meetings, also to consider visiting nurse referral if needed (patient refused at this time). Discussed safety planning to call 911 or come to the ED if having SI/HI or feels at risk of harming self or others. Informed patient and his Mother to discuss symptoms with [facility] staff - prior to a relapse or SI.
[2017-10-20 11:51] VITALS: BP 126/71
[2017-10-20] MEDS ORDERED: MELATONIN3 M4 PO (11:51)
[2017-10-20] MEDS ORDERED: TRAZODONE HCL100 M1 PO (11:51)
[2017-10-20] MEDS ORDERED: CELEXA40 M1 PO (11:51)
[2017-10-20] MEDS ORDERED: LATUDA60 M1 PO (11:51)
[2017-10-20] MEDS ORDERED: GABAPENTIN300 M2 PO (11:51)
[2017-10-20] MEDS ORDERED: NICOTINE PATCH1 EAC3 TOP (11:51)
[2017-10-20] MEDS ORDERED: PROPRANOLOL HCL10 M1 PO (11:51)
[2017-10-20] MEDS ORDERED: ONE DAILY MULT1 EAC2 PO (11:52)
--- NOTE | 2017-10-20 12:00 | Patient Discharge Instructions ---
Psych Discharge Inst General Discharge Information Reason for Admission: Called suicide hotline in context of passive SI. Off medications and using MJ x ~2 weeks. Overused gabapentin on 10/09/17. Psy Discharge Primary Diag+ Bipolar d/o, depressed Psy Discharge Secondary Diag+ Alcohol use disorder Cannabis use disorder Summary Tests/Major Procedures Lab ALT 48 U/L 10/11/170 AST 24 U/L 10/11/172109 BUN 20 mg/dL 10/15/17 0600 Carbon Dioxide 24 mmol/L 10/15/17 0600 Chloride 105 mmol/L 10/15/17 0600 Cholesterol 257 MG/DL H 10/11/170 Cholesterol/HDL Ratio 6 % H 10/11/172109 Creatinine 0.9 mg/dL 10/15/17599 Estimated GFR > 60 ml/min 10/15/17 0600 Glucose 97 mg/dL 10/11/170 HDL Cholesterol 45 mg/dL 10/11/172109 Hemoglobin A1c 5.2 % 10/11/172109 LDL Cholesterol Direct 140.42 mg/dL H 10/11/170 LDL Cholesterol, Calc ND mg/dL 10/11/172109 Potassium 4.6 mmol/L 10/15/17 0600 Sodium 142 mmol/L 10/15/17 0600 TSH &T3 &Free T4 Intrp 1.570 uIU/mL 10/11/170 Triglycerides 495 mg/dL H 10/11/170 Absolute Monocytes 0.8 /CUMM H 10/15/17 0600 Hct 46.9 % 10/15/17 0600 Hgb 15.8 G/DL 10/15/17 0600 MPV 10.7 FL H 10/15/17 0600 Plt Count 217 /CUMM 10/15/17 0600 RBC 5.21 /CUMM 10/15/17 0600 WBC 10.1 /CUMM 10/15/17 0600 Acetaminophen < 10.0 ug/mL L 10/11/17 2110 [place] < 0.2 mmol/L L 10/11/17 2110 Serum Alcohol 264.0 MG/DL 10/11/170 Urine Cannabis Screen > 80.00 NG/ML H 10/11/172104 EKG 10/13/17 showed sinus rhythm @ 77, no previous tracing. Normal EKG. QT 392. QTc 444. Studies Pending at DC: None. Patient Instructions Contact Information Your Psychiatrist on [facility] was Ludwin Becerra MD * If you are experiencing an emergency related to this hospitalization, please call [phone] to contact the treating psychiatrist or the psychiatrist-on- call. * To Request a copy of your medical records, please contact the Medical Records Department at [phone]. * To request results of studies pending at the time of discharge, please call [phone]. * Continue your Medications until directed to stop by your Healthcare provider. General Medication Information Please continue to take your new medications and your continued home medications , unless otherwise indicated on your discharge medication list, or unless directed by your MD or MECHANIC SOUND TECHNICIAN to stop them. Special Instructions Diet Heart Healthy Activity Normal Other Inst/Recommendations Stay away from drugs&alcohol. Please see PCP about high chol/triglycerides - Tobacco Use Treatment Offered Post DC Medications Offered: Script Given-See Med List Post DC Tobacco Treatment Plan: [facility] Tobacco [facility]x [facility] Program Appt Date: 10/22/17 Program Appt Time: 1600 - EtOH/Drug Use D/O Treatment Offered Post DC Medications Offered: Med Not Indicated for D/O Post DC EtOH/SubAbuse TX Plan: [facility] SubAbuse/Dual IOP Program Appt Date: 10/20/17 Program Appt Time: 1315 Metabolic Screening () Not Applicable, patient not on a neuroleptic. OR () Patient on a neuroleptic(s) . Enter below results for Hemoglobin A1C, and lipid panel if obtained during the last 365 days. BMI: Blood Pressure: 126/71 Laboratory Results From [facility] (If applicable): [x] Lab Cholesterol 257 MG/DL H 10/11/172109 Cholesterol/HDL Ratio 6 % H 10/11/172109 HDL Cholesterol 45 mg/dL 10/11/172109 Hemoglobin A1c 5.2 % 10/11/172109 LDL Cholesterol Direct 140.42 mg/dL H 10/11/172109 LDL Cholesterol, Calc ND mg/dL 10/11/172109 Triglycerides 495 mg/dL H 10/11/172109 Advance Directives Does the Patient have Medical Advance Directives No/Refused further info Does Pt have Psychiatric Advance Directives? No/Refused further info Does Patient have a Designated Surrogate Decision Maker: No Information About Psychiatric Advance Directives Provided? Refused Discharge Plan Post Hospital Treatment Plan: Returning to live with father. Father will be asked to supervise medications. [facility] IOP intake today at 1:15 pm.
--- NOTE | 2017-10-20 17:35 | [facility] PROGRESS NOTE PSYCH ---
Psych (Inpt) Progress Note Progress Note Include the following elements, when applicable: Involvement in the active treatment of the patient with behavioral observations of the patient and the patient's response to the treatment. Review of the ongoing treatment process in the context of the treatment plan. Indication of how multi-disciplinary staff members are carrying out the treatment plan. Plans for future interventions and recommendations for revision of the treatment plan. Liaison with other physicians/providers. Progress Note: Dr. Mcclellan's notes reviewed. Case and treatment plan discussed in team meeting. Staff reports that the patient is denying suicidal ideation. Had good weekend. Has intake scheduled at [facility] for 1:15 PM today. Patient seen at 11:38 AM with Brenna Monroy LCSW. Patient was in group prior to meeting with us in office. Feels good. Has no complaints. Reports he had a good weekend. Affect is calm and blunted. Reports mood is good. States he is not feeling depressed or anxious. States his mood is pretty even. Rates sad mood and anxiety both 3/10. Denies feeling hopeless, helpless, worthless or guilty. Denies active and passive suicidal ideation. Denies homicidal ideation. Denies auditory and visual hallucinations and paranoid ideation. Reports sleep is good. States for the last few nights, sleep has been much better. Appetite is good. Energy is a little low. Tolerating medications except feels a little tired. Appears awake and alert. Feels ready and safe for discharge. IMPRESSION: Condition improved. Okay for discharge today to intake at [facility] at 1:15 PM. Patient will return to live with father.
--- NOTE | 2017-10-20 17:43 | DISCHARGE SUMMARY REPORT-PSYCH ---
Visit Information Visit Dates/Diagnosis' Admission Date: 10/13/17 Discharge Date: 10/20/17 Reason for Admission: Called suicide hotline in context of passive SI. Off medications and using MJ x ~2 weeks. Overused gabapentin on 10/09/17. Psy Discharge Primary Diag: Bipolar d/o, depressed Psy Discharge Secondary Diag: Alcohol use disorder Cannabis use disorder Hyperlipidemia Hospital Course Significant Lab Findings: Lab ALT 48 U/L 10/11/170 AST 24 U/L 10/11/172109 BUN 20 mg/dL 10/15/17 0600 Carbon Dioxide 24 mmol/L 10/15/17 0600 Chloride 105 mmol/L 10/15/17 0600 Cholesterol 257 MG/DL H 10/11/170 Cholesterol/HDL Ratio 6 % H 10/11/172109 Creatinine 0.9 mg/dL 10/15/17 06 Estimated GFR > 60 ml/min 10/15/17 0600 Glucose 97 mg/dL 10/11/170 HDL Cholesterol 45 mg/dL 10/11/170 Hemoglobin A1c 5.2 % 10/11/170 LDL Cholesterol Direct 140.42 mg/dL H 10/11/170 LDL Cholesterol, Calc ND mg/dL 10/11/170 Potassium 4.6 mmol/L 10/15/17 0600 Sodium 142 mmol/L 10/15/17 0600 TSH &T3 &Free T4 Intrp 1.570 uIU/mL 10/11/170 Triglycerides 495 mg/dL H 10/11/17 2110 Absolute Monocytes 0.8 /CUMM H 10/15/17 0600 Hct 46.9 % 10/15/17 0600 Hgb 15.8 G/DL 10/15/17 0600 MPV 10.7 FL H 10/15/17 0600 Plt Count 217 /CUMM 10/15/17 0600 RBC 5.21 /CUMM 10/15/17 0600 WBC 10.1 /CUMM 10/15/17 0600 Acetaminophen < 10.0 ug/mL L 10/11/17 2110 Knippa < 0.2 mmol/L L 10/11/17 2110 Serum Alcohol 264.0 MG/DL 10/11/170 Urine Cannabis Screen > 80.00 NG/ML H 10/11/172104 EKG 10/13/17 showed sinus rhythm @ 77, no previous tracing. Normal EKG. QT 392. QTc 444. Course Complications: None. Consultations: The patient was seen by Dr. Sathish Mendes for admission H&P. Dr. Mendes noted: "Assessment: Impression/Plan: #Depression/Suicidal Ideation- as above, patient presents in ED requesting assistance. Previously was seen at [facility] and had gone until when ended 3 weeks ago. Has h/o bipolar on Knippa. Has had some racing thoughts. Plan: Admit to [facility] for treatment. As per psychiatry team. #EtOH Abuse/Withdrawal- patient admits to increased EtOH use. Plan: CIWA, Ativan, MVI, thiamine, folic acid, etc. as per detox protocol. #Cannibis Use-as per psych note has been using frequently. Plan: As per psychiatry. #Nicotine Dependence- smoking 2 ppd. Plan: Agree with nicotine patch. Smoking cessation counseling. " Dr. Mendes noted about hyperlipidemia: #Hyperlipidemia- as noted by nursing chol 250 - elevated LDL/TG (?if fasting). Would suggest heart healthy diet at present and OP follow-up with his PCP ( Diandra Fonseca APRN) when ready for discharge. Allergies: Uncoded Allergies: "ANTI PSYCHOTIC DRUGS" (UNKNOWN 10/29/16) Hospital Course/TX Response: The patient was monitored on the unit for safety, substance withdrawal and mood disturbance. He participated in multi-modal treatments on the unit. Detox was uneventful. Latuda dose was increased to 60 mg daily. Melatonin 3 mg qhs and trazodone 100 mg qhs were ordered for sleep. Celexa 40 mg daily was continued for depression. Neurontin was continued at 300 mg t.i.d. Propranolol 10 mg b.i.d. was continued for hypertension. Mood and affect have improved. Suicidal ideation has remitted. Progress note from date of discharge, 10/20/17: Dr. Mcclellan's notes reviewed. Case and treatment plan discussed in team meeting. Staff reports that the patient is denying suicidal ideation. Had good weekend. Has intake scheduled at [facility] for 1:15 PM today. Patient seen at 11:38 AM with Brenna Monroy LCSW. Patient was in group prior to meeting with us in office. Feels good. Has no complaints. Reports he had a good weekend. Affect is calm and blunted. Reports mood is good. States he is not feeling depressed or anxious. States his mood is pretty even. Rates sad mood and anxiety both /10. Denies feeling hopeless, helpless, worthless or guilty. Denies active and passive suicidal ideation. Denies homicidal ideation. Denies auditory and visual hallucinations and paranoid ideation. Reports sleep is good. States for the last few nights, sleep has been much better. Appetite is good. Energy is a little low. Tolerating medications except feels a little tired. Appears awake and alert. Feels ready and safe for discharge. IMPRESSION: Condition improved. Okay for discharge today to intake at [facility] at 1:15 PM. Patient will return to live with father. Discharge HBIPS - Tobacco Use Treatment Offered Post DC Medications Offered: Script Given-See Med List Post DC Tobacco Treatment Plan: [facility] Tobacco Tx Pgm Program Appt Date: 10/22/17 Program Appt Time: 1600 - EtOH/Drug Use D/O Treatment Offered Post DC Medications Offered: Med Not Indicated for D/O Post DC EtOH/SubAbuse TX Plan: [facility] SubAbuse/Dual IOP Program Appt Date: 10/20/17 Program Appt Time: 1315 Metabolic Screening - Screen if on a Neuroleptic Medication - Metabolic screening should include: - Blood Pressure, BMI, Glucose or Hgb A1c, & a - Lipid profile from within the past 365 days. Metabolic Screening () Not Applicable, patient not on a neuroleptic. OR () Patient on a neuroleptic(s) . Enter below results for Hemoglobin A1C, and lipid panel if obtained during the last 365 days. BMI: Blood Pressure: 126/71 Laboratory Results From [facility] (If applicable): [x] Lab Cholesterol 257 MG/DL H 10/11/172109 Cholesterol/HDL Ratio 6 % H 10/11/172109 HDL Cholesterol 45 mg/dL 10/11/172109 Hemoglobin A1c 5.2 % 10/11/172109 LDL Cholesterol Direct 140.42 mg/dL H 10/11/172109 LDL Cholesterol, Calc ND mg/dL 10/11/172109 Triglycerides 495 mg/dL H 10/11/172109 Discharge Instructions General Discharge Information Multiple Neuroleptics: ([x]) Not Applicable OR Document below three failed attempts at monotherapy, or a plan to taper to monotherapy, or augmentation of Clozapine. () Discharge Diet Heart Healthy Discharge Activity Normal DC Disposition: Returning to live with father. Referrals Ordered Referrals Provider Referral 10/20/17 For Groups: [[facility]] [facility] for mental health and addiction services Intake 10/20/17 1:15pm [address] [place] [id number] Provider Referral 10/22/17 For Groups: Outpatient Psychiatry [facility] 10/22/17 4pm [address] [id number] Prescriptions Stop taking the following medications: Knippa Carbonate (Knippa Carbonate) 600 MG CAPSULE ORAL TWICE DAILY Qty = 60 Propranolol HCl (Propranolol HCl) 20 MG TABLET ORAL THREE TIMES DAILY Qty = 60 Quetiapine Fumarate (Quetiapine Fumarate) 100 MG TABLET ORAL Every night Qty = 30 Quetiapine Fumarate (Quetiapine Fumarate) 50 MG TABLET ORAL Every night Qty = 30 Olanzapine (Olanzapine) 5 MG TABLET ORAL Every night Qty = 14 Hydroxyzine Hydrochloride (Atarax) 50 MG TABLET ORAL Every night Qty = 46 Trazodone HCl (Trazodone HCl) 50 MG TABLET ORAL Every night Qty = 23 Cariprazine HCl (Vraylar) 3 MG CAPSULE ORAL DAILY Qty = 30 Mirtazapine (Mirtazapine) 30 MG TABLET ORAL Every night Qty = 15 Lurasidone HCl (Latuda) 40 MG TABLET ORAL Every night Days = 0 Continue taking these medications: Propranolol HCl (Propranolol HCl) 10 MG TABLET 1 Tablet ORAL TWICE DAILY Qty = 28 Comments: Last Taken:10/20/17 Time:9am This prescription has been renewed Start taking the following new medications: Nicotine (Nicotine Patch) 21 MG/24 HOUR PATCH.TD24 21 Milligram On the skin DAILY Qty = 14 No Refills Comments: Last Taken:10/20/17 Time:9am Trazodone HCl (Trazodone HCl) 100 MG TABLET 1 Tablet ORAL AT BEDTIME Qty = 14 No Refills Comments: Last Taken:10/19/17 Time:10pm Melatonin (Melatonin) 3 MG TABLET 3 Milligram ORAL AT BEDTIME Qty = 14 No Refills Comments: Last Taken:10/19/17 Time:10pm Multivitamin (One Daily Multivitamin) 1 EACH TABLET 1 Tablet ORAL DAILY Qty = 14 No Refills Comments: Last Taken:10/20/17 Time:9am Lurasidone HCl (Latuda) 60 MG TABLET 1 Tablet ORAL DAILY Qty = 14 No Refills Instructions: take with food Comments: Last Taken:10/20/17 Time:9am The following medications have been changed: Old: Gabapentin (Gabapentin) 300 MG CAPSULE 1 Capsule ORAL THREE TIMES DAILY Qty = 69 New: Gabapentin (Gabapentin) 300 MG CAPSULE 1 Capsule ORAL THREE TIMES DAILY Qty = 42 Comments: Last Taken:10/20/17 Time:9am Old: Citalopram Hydrobromide (Celexa) 40 MG TABLET 1 Tablet ORAL DAILY Days = 0 New: Citalopram Hydrobromide (Celexa) 40 MG TABLET 1 Tablet ORAL DAILY Qty = 14 Comments: Last Taken:10/20/17 Time:9am Other Inst/Recommendations Stay away from drugs&alcohol. Please see PCP about high chol/triglycerides Studies Pending at Discharge None. Copies To: Intensive Outpt Psychiatry
--- NOTE | 2017-10-20 18:40 | SOCIAL WORKER PROG NOTE PSYCH ---
Social Work Progress Note Faxed Referral(s) Referred To: [facility] Transition of Care Documents sent: Health Summary Faxed to: [facility] Fax #: [phone] Faxed by: ANAYELI RODRIGUEZ LCSW Date faxed: 10/20/17 Time Faxed: [phone]
== END 2017-10-20 13:37 | DRG 753 ==
LOC: ERH 20:40 → ERHI 10-13 10:05 → CP SOUTH 10-13 10:05 → ENTRNSPT 10-13 12:50 → EDTRNSPT 10-13 13:12 → EDTRNSPTSTS 10-13 13:12 → CP SOUTH 10-13 13:18 → CMPTRNSPT 10-13 13:22 → ENRESERV 10-13 23:59 → CP SOUTH 10-14 19:03
PROVIDERS: Emergency Medicine
DX: F31.9 Bipolar disorder, unspecified (principal); E78.5 Hyperlipidemia, unspecified; F12.90 Cannabis use, unspecified, uncomplicated; F10.10 Alcohol abuse, uncomplicated
CPT/HCPCS: 36415; 80307; 82436; 90832; 93005; 93010; 96372; G0463; G0480; J1200; J1630; J3490